=== PATIENT | male | born 1945 | race Caucasian/White ===

== ENCOUNTER 2022-01-03 17:04 | Inpatient (IN) | payer MEDICARE, SELFPAY ==
[2022-01-03] VITALS (32 sets, daily range): BP systolic 66–176; BP diastolic 41–109; PULSE 65–132; RESP 30–54; TEMP 36.6–39; O2SAT 75–100; BMI 27.3
--- NOTE | 2022-01-03 17:14 | ECG_ITS ---
[facility] Test Date: 2022-01-03 Pat Name: Abhijit Saez Department: Room: Gender: Male Bar Captain: : 1945 Requested By: Pete Flores Order Number: [id number] Daphne MD: Bonnie Ramirez M.D. Measurements Intervals [place] Rate: 116 P: CO: QRS: -20 QRSD: 104 T: 78 QT: 225 QTc: 313 Interpretive Statements SINUS RHYTHM WITH FREQUENT PAC'S AND INTERMITTENT BLOCKED PAC'S MARKED ST DEPRESSION, CONSIDER SUBENDOCARDIAL INJURY Compared to ECG 05/06/2017 09:47:22 ST (T wave) deviation now present Sinus rhythm no longer present Electronically Signed On 01-03-2022 20:19:35 CDT by Bonnie Ramirez M.D. [id number]
--- NOTE | 2022-01-03 17:17 | XRR_ITS ---
PROCEDURE INFORMATION: Exam: XR Chest Exam date and time: 01/03/2022 5:24 PM Age: 76 years old Clinical indication: Cough; Additional info: Dyspnea/cough TECHNIQUE: Imaging protocol: Radiologic exam of the chest. Views: 1 view. COMPARISON: MR thoracic spin wo con* [id number] 06/22/2016 4:23 PM FINDINGS: Lungs: The lung bases are suboptimally assessed due to technique however the upper lungs are clear of focal consolidation. Ill-defined opacity in the right base may represent developing pneumonitis. Streaky left basilar opacity is also present which may represent atelectasis-scarring. Pleural spaces: Unremarkable. No pleural effusion. No pneumothorax. Heart/Mediastinum: Cardiac silhouette appears normal in size. No obvious vascular congestion however there is slightly prominent right hilar contour which may represent prominent central vasculature versus adenopathy/mass.. Bones/joints: No acute osseous findings. Other findings: Single view was submitted. XR/XR chest 1V portable [id number] IMPRESSION: Ill-defined right basilar opacity and slightly prominent right hilar contour. Correlation with chest CT should be considered, preferably with IV contrast. Comparison prior study may also be helpful if available.
--- NOTE | 2022-01-03 17:20 | USCV_ITS ---
Abhijit Saez Age: 76 Gender: M : 1945 Exam Date: 01/03/2022 18:49 Ordering Phys: Pete Gonzalez DO Technologist: ARIC [place] [facility] [place]: new onset Afib, elevated troponin. No history of cardiac intervention per . Long-term smoker. BP: 95 / 70 HR: 111 Rhythm: Atrial fibrillation Technical Quality: Fair MEASUREMENTS (Male / Female) Normal Values 2D ECHO LV Diastolic Diameter PLAX 4.6 cm 4.2 - 5.9 / 3.9 - 5.3 cm LV Systolic Diameter PLAX 3.7 cm IVS Diastolic Thickness 1.2 cm 0.6 - 1.0 / 0.6 - 0.9 cm IVS Systolic Thickness 1.7 cm LVPW Diastolic Thickness 1.2 cm 0.6 - 1.0 / 0.6 - 0.9 cm LVPW Systolic Thickness 1.7 cm LVOT Diameter 1.8 cm LV Ejection Fraction 2D Teich 41.0 % LV Ejection Fraction MOD 2C 38.9 % LV Ejection Fraction 2C AL 39.6 % LA Diameter 3.7 cm LA Width 4.4 cm LA Height 5.8 cm RA Width 4.1 cm RA Height 4.0 cm Aorta at Sinotubular Diameter 2.9 cm IVC Diameter 2.0 cm M-MODE Aortic Annulus Diameter 3.0 cm LA Ao Ratio MM 1.0 MV E Point Septal Separation 1.3 cm DOPPLER AV Peak Velocity 301.7 cm/s LVOT Peak Velocity 63.0 cm/s AV Area Cont Eq vti 0.5 cm squared AV Area Cont Eq pk 0.5 cm squared MV Peak Velocity 123.0 cm/s MV Area PHT 5.1 cm squared Mitral E to A Ratio 199.6 MV E' Velocity 54.0 cm/s Mitral E to MV E' Ratio 13.7 Mitral E to LV E' Lateral Ratio 13.1 Mitral E to LV E' Septal Ratio 14.5 TR Peak Velocity 291.5 cm/s TR Peak Gradient 34.0 mmHg TV Peak E Velocity 47.0 cm/s Right Atrial Pressure 10.0 mmHg Pulmonary Artery Systolic Pressu 44.0 mmHg FINDINGS Left Ventricle Diffuse hypokinesia of the left ventricle with an ejection fraction of around 40%. Patient was found to be in atrial fibrillation with rapid ventricular rate, during the study Right Ventricle The right ventricle is normal in size and function. Right Atrium Mildly increased right atrial size. Left Atrium Mildly increased left atrial size. Mitral Valve Moderate-severe mitral valve regurgitation. Aortic Valve Moderate aortic valve calcification. Severe low gradient aortic valve stenosis with a peak velocity of 3.16 m/s. Peak gradient of 40 mmHg and a mean gradient of 22 mmHg. Valve area based on VTI was 0.50 cm squared. Tricuspid Valve Mild tricuspid valve regurgitation. Estimated pulmonary artery peak systolic pressure 44 mmHg Pulmonic Valve Pulmonic valve not well visualized. Pericardium Normal pericardium without effusion. Aorta Normal ascending aorta dimension. IVC Dilated IVC with decreased respiratory variation. CONCLUSIONS Diffuse hypokinesia of the left ventricle with an ejection fraction of around 40%. Mild biatrial enlargement Moderate-severe mitral valve regurgitation. Moderate aortic valve calcification. Severe low gradient aortic valve stenosis with a peak velocity of 3.16 m/s. Peak gradient of 40 mmHg and a mean gradient of 22 mmHg. Valve area based on VTI was 0.50 cm squared. Mild tricuspid valve regurgitation. Estimated pulmonary artery peak systolic pressure 44 mmHg Estimated right atrial mean pressure of 15 mmHg There is no pericardial effusion. There are no intracardiac masses. No similar previous studies are available for comparison Dr Fern Nickerson MD FACC (Electronically Signed) Final Date: 04 January 2022 07:39 S
[2022-01-03] MEDS: esmolol drip 2,500 MG/250 ML PREMIX 23.81 MG IV (17:22)
[2022-01-03] MEDS: heparin 5,000 unit/mL INJ 1 mL IV (17:23)
[2022-01-03 17:27] LABS: ABG PH Result 7.45 (7.35-7.45); Arterial Blood Gas Hematocrit 36.5 % (42-52); Base Excess ABG -7.3 mmol/L (-2.0-2.0); Blood Gas Allen Test Pos; Blood Gas Operator Identificat AMH; Blood Gas Sample Site Radial, left; Blood Gas Sample Type Arterial; HCO3 ABG 14.7 mmol/L (22-26); HGB O2 Sat 86.2 % (95-100); Ionized Calcium Level - ABG 1.1 mmol/L (1.1-1.4); Methemoglobin 0.5 % (0.4-1.5); Oxygen Device NC; Oxygen Saturation ABG 87.6; PO2 ABG 52.5 mmHg (80.0-100.0); Potassium Level - ABG 2.8 mmol/L (3.5-5.0); Total Hemoglobin 11.9 g/dL (14-18)
[2022-01-03 17:34] LABS: Basophils % 0.2 %; Eosinophils # 0.1 10^3/uL (0.0-0.8); Eosinophils % 0.3 %; Hematocrit 33.3 % (42.0-52.0); Hemoglobin 11.4 g/dL (11.7-16.6); Lymphocytes # 0.9 10^3/uL (0.8-4.8); Lymphocytes % 4.5 %; Mean Corpuscular HGB Conc 34.2 g/dL (30.0-36.0); Mean Corpuscular Hemoglobin 30.2 pg (28.0-34.0); Mean Corpuscular Volume 88.3 fl (80-94); Monocytes # 0.9 10^3/uL (0.2-0.9); Monocytes % 4.8 %; Neutrophils # 17.66 10^3/uL (1.8-7.7); Neutrophils % 89.3 %; Nucleated Red Blood Cells % 0 %; Platelet Count 227 10^3/cmm (130-400); Red Blood Count 3.77 10^6/uL (4.1-5.3); White Blood Count 19.8 10^3/uL (4.0-10.0)
--- NOTE | 2022-01-03 17:34 | ED_ITS ---
HPI - Chest Pain General: Chief Complaint: Chest Pain Stated Complaint: afib / rvr Time Seen by Provider: 01/03/22 17:07 Source: patient Mode of arrival: EMS History of Present Illness: 76-year-old male transferred here from [facility] in [place]. Patient presents in A. fib with RVR he sounds like he may have been his for most of the last week. He is extremely short of breath. He denies any chest pain. Initially an EKG was faxed to us that were concerned about a STEMI I reviewed and discussed with Dr. Milton and neither 1 of us felt there is a STEMI present I did feel his A. fib with RVR discussed with the ER doctor there about starting him on something for rate control. Additionally he was hypoxic. He states been increasingly short of breath for the last week. On arrival here he is received 2.5 metoprolol and EMS had given him 20 of IV Cardizem his rate had been in the 140s. He is requiring 15 L by mask. He continues to deny any chest pain. On EKG he is A. fib with RVR with some ST depression that looks like demand ischemia. Laboratory values sent from the sending hospital included elevated D-dimer at 6.6 elevated creatinine at 3.07 and initial troponin greater than 1000. MD complaint: chest pain Onset (ago): day(s) Timing of current episode: episodic Prior episodes: Yes Onset: during rest Pain radiation: none Relieving factors: nothing Exacerbating factors: nothing Associated symptoms: Reports dyspnea; Deny abdominal pain, diaphoresis, fever(s), leg edema, nausea, palpitations, sense of impending doom, syncope or vomiting Treatment prior to arrival: other (Metoprolol) Review of Systems Const: Denies: fever(s), chills, fatigue, malaise or diaphoresis ENMT: Denies: throat pain, ear or mastoid pain, nasal discharge or nasal congestion Card: Reports: irregular heart rhythm and edema; Denies: chest pain, palpitations or syncope Resp: Reports: dyspnea GI: Denies: abdominal pain, nausea or vomiting : Denies: flank pain, dysuria, urinary frequency or urinary urgency Skin/Breast: Denies: rash or pruritus PFS ED PFSH: Medical History Dyslipidemia Hypertension Surgical History H/O lumbosacral spine surgery Family History Other CAD (coronary artery disease) Social History Smoking and tobacco status: former smoker Quit status (tobacco): has quit using tobacco Former quit date comment: 2 years ago Alcohol intake: never Household members: spouse Physical Exam Const: GENERAL APPEARANCE: cooperative and comfortable ORIENTATION/CONSCIOUSNESS: Yes awake, Yes oriented to person, Yes oriented to place and Yes oriented to time HENMT: COMMON NORMALS: normocephalic, atraumatic and hearing grossly normal bilaterally HEAD & SCALP: normocephalic and atraumatic Resp: COMMON NORMALS: normal respiratory effort, No retractions, No use of accessory muscles and clear to auscultation bilaterally AUSCULTATION: clear to auscultation bilaterally Cardio: COMMON NORMALS: regular rate, regular rhythm and No murmurs present (Cardio) RATE: regular rate RHYTHM: regular rhythm GI: COMMON NORMALS: Soft to palpation and No hepatosplenomegaly present AUSCULTATION: Yes normoactive bowel sounds PALPATION: Yes Soft to palpation, No Tenderness to palpation present (GI), No Guarding due to palpation present (GI) and Yes No hepatosplenomegaly present Extremity: COMMON NORMALS: normal to inspection, capillary refill normal, no clubbing, cyanosis or edema, no calf tenderness and no pedal edema Neuro: SENSORIUM/ORIENTATION: Yes oriented to person, Yes oriented to place and Yes oriented to time Skin: COMMON NORMALS: no rashes or lesions noted GENERAL SKIN EXAM: no rashes or lesions noted Course Vital Signs: Vital signs: Vital Signs Temperature 98.6 F 01/05/22 17:08 Pulse Rate 76 01/05/22 17:08 Respiratory Rate 18 01/05/22 17:08 Blood Pressure 124/71 01/05/22 17:08 Pulse Oximetry 100 01/05/22 14:30 Oxygen Delivery Me thod 01/05/22 12:00 Oxygen Flow Rate 15 01/03/22 17:13 Fraction of Inspir ed Oxygen 100 01/05/22 13:30 MDM - Chest Pain Medical Decision Making Multiple issues ongoing at this time. When he arrived here he was in A. fib with RVR. He did receive a dose of Cardizem. We started him on esmolol initially but his blood pressure drop was changed to amiodarone. Patient has significant ST depression but he is not having any chest pain. He also looks to have pneumonia suspicious for COVID. He did respond well to BiPAP. He has acute kidney injury as well. I did heparinize him because of the elevated D- dimer and troponin suspicious he may have a PE but at this time I do not think his kidneys will tolerate a CTA of the chest. Discussed with hospitalist also consulted cardiology. Prognosis poor. Discussed with the family at the bedside. Medical Records I reviewed the patient's medical records. Lab Data I reviewed the patient's lab results. : 01/05/22 07:55 01/05/22 07:55 Radiology Impressions Renal Ultrasound 01/04/22 23:19 IMPRESSION: 1. Zepeda catheter. 2. Mild RIGHT renal cortical atrophy. 3. Normal LEFT kidney. 4. No hydronephrosis in either kidney. Chest X-Ray 01/05/22 10:27 Impression: 1. No change in right lung opacity. 2. No change in position of multiple tubes. 3. Cardiomegaly. KUB X-Ray 01/05/22 10:27 Impression: 1. Dilatation of small bowel loops in central abdomen which may represent a severe ileus or early small bowel obstruction. 2. Multiple wires and leads overlie the abdomen. Laboratory Results WBC 19.8 10^3/uL (4.0-10.0) H 01/03/22 17:20 RBC 3.77 10^6/uL (4.1-5.3) L 01/03/22 17:20 Hgb 11.4 g/dL (11.7-16.6) L 01/03/22 17:20 Hct 33.3 % (42.0-52.0) L 01/03/22 17:20 MCV 88.3 fl (80-94) 01/03/22 17:20 MCH 30.2 pg (28.0-34.0) 01/03/22 17:20 MCHC 34.2 g/dL (30.0-36.0) 01/03/22 17:20 RDW 14.0 % (12.1-15.1) 01/03/22 17:20 Plt Count 227 10^3/cmm (130-400) 01/03/22 17:20 MPV 12.0 fL (7.4-10.4) H 01/03/22 17:20 Neut % (Auto) 89.3 % 01/03/22 17:20 Lymph % (Auto) 4.5 % 01/03/22 17:20 [place] % (Auto) 4.8 % 01/03/22 17:20 Eos % (Auto) 0.3 % 01/03/22 17:20 Baso % (Auto) 0.2 % 01/03/22 17:20 Neut # (Auto) 17.66 10^3/uL (1.8-7.7) H 01/03/22 17:20 Lymph # (Auto) 0.9 10^3/uL (0.8-4.8) 01/03/22 17:20 [place] # (Auto) 0.9 10^3/uL (0.2-0.9) 01/03/22 17:20 Eos # (Auto) 0.1 10^3/uL (0.0-0.8) 01/03/22 17:20 Baso # (Auto) 0.0 10^3/uL (0.0-0.1) 01/03/22 17:20 Nucleated RBC % (auto) 0 % 01/03/22 17:20 Nucleated RBCs # 0.0 /100WBC 01/03/22 17:20 Specimen Type Arterial 01/03/22 17:15 Sample Site Radial, left 01/03/22 17:15 ABG pH 7.45 (7.35-7.45) 01/03/22 17:15 ABG pCO2 21.0 mmHg (35-45) L 01/03/22 17:15 ABG pO2 52.5 mmHg (80.0-100.0) L 01/03/22 17:15 ABG HCO3 14.7 mmol/L (22-26) L 01/03/22 17:15 ABG O2 Saturation 87.6 01/03/22 17:15 ABG Base Excess -7.3 mmol/L (-2.0-2.0) L 01/03/22 17:15 Miles Test Pos 01/03/22 17:15 A-a O2 Gradient 9.0 mmHg (5-10) 01/03/22 17:15 Hematocrit 36.5 % (42-52) L 01/03/22 17:15 Hgb O2 Saturation 86.2 % (95-100) L 01/03/22 17:15 Carboxyhemoglobin 1.0 %THgb (0.4-20.1) 01/03/22 17:15 Methemoglobin 0.5 % (0.4-1.5) 01/03/22 17:15 Total Hemoglobin 11.9 g/dL (14-18) L 01/03/22 17:15 Sodium 134.0 mmol/L (131-143) 01/03/22 17:15 Potassium 2.8 mmol/L (3.5-5.0) L 01/03/22 17:15 Glucose 292.0 mg/dL (70-115) H 01/03/22 17:15 Ionized Calcium 1.1 mmol/L (1.1-1.4) 01/03/22 17:15 O2 Delivery Device Nc 01/03/22 17:15 O2 Liters/Min 15.0 % 01/03/22 17:15 Bench Scientist ID Amh 01/03/22 17:15 Sodium 133 mmol/L (136-145) L 01/03/22 19:30 Potassium 2.8 mmol/L (3.5-5.1) L* 01/03/22 19:30 Chloride 94 mmol/L (98-107) L 01/03/22 19:30 Carbon Dioxide 15 mmol/L (22-29) L 01/03/22 19:30 Anion Gap 26.8 (5-19) H 01/03/22 19:30 BUN 57 mg/dL (8-23) H 01/03/22 19:30 Creatinine 3.0 mg/dL (0.7-1.2) H 01/03/22 19:30 GFR Calculation Not Reportable 01/03/22 19:30 Glucose 267 mg/dL (65-115) H 01/03/22 19:30 Estimat Average Glucose 140 01/03/22 17:20 Hemoglobin A1c 6.5 % (4.0-6.0) H 01/03/22 17:20 Calculated Osmolality 301 mOsm/kg (285-295) H 01/03/22 19:30 Uric Acid 14.5 mg/dL (3.4-7.0) H 01/03/22 01:28 Calcium 8.8 mg/dL (8.5-10.5) 01/03/22 19:30 Phosphorus 7.0 mg/dL (2.5-4.5) H 01/03/22 01:28 Magnesium 2.3 mg/dL (1.7-2.3) 01/03/22 20:28 Total Bilirubin 0.6 mg/dL (0.15-1.2) 01/03/22 19:30 AST 361 U/L (0-40) H 01/03/22 19:30 ALT 125 U/L (0-41) H 01/03/22 19:30 Alkaline Phosphatase 109 U/L (40-130) 01/03/22 19:30 Creatine Kinase 4622 U/L (39-308) H* 01/03/22 17:20 CK-MB (CK-2) 42.7 ng/mL (0-10.4) H 01/03/22 17:20 CK-MB (CK-2) Rel Index 0.9 % (0.0-5.3) 01/03/22 17:20 Troponin T Baseline 1533 ng/L (0-15) H* 01/03/22 17:20 Troponin T 120 Minute 3806 ng/L (0-15) H 01/03/22 20:28 Delta Troponin T 2273 ABS# (0-10) H* 01/03/22 20:28 Troponin T Hi Sens 6Hr 7383 ng/L (0-15) H 01/03/22 01:28 Troponin T Hi Sens 6Hr Delta 5850 ng/L (0-12) H* 01/03/22 01:28 Total Protein 7.0 g/dL (6.6-8.7) 01/03/22 19:30 Albumin 3.4 g/dL (3.5-5.2) L 01/03/22 19:30 Globulin 3.6 g/dL (1.3-4.6) 01/03/22 19:30 Procalcitonin 31.36 ng/mL (0-0.5) H 01/03/22 17:20 TSH 0.19 uIU/mL (0.27-4.20) L 01/03/22 19:30 Random Cortisol 116.30 ug/dL (2.47-19.5) H 01/03/22 20:28 TORREY Screen Negative (NEGATIVE) 01/03/22 01:28 Anti-ds DNA IgG Ab <1 IU/mL 01/03/22 01:28 Complement C3 108 mg/dL (90-180) 01/03/22 01:28 Complement C4 25 mg/dL (10-40) 01/03/22 01:28 Hep Bs Antigen Non-reactive (Nonreactive) 01/03/22 01:28 Hep Bs Antibody < 3.5 (11.5-1000) L 01/03/22 01:28 Hep B Core Total Ab Non-reactive (Nonreactive) 01/03/22 01:28 Hepatitis C Antibody Cancelled 01/03/22 01:28 Hepatitis C Antibody Non-reactive (Nonreactive) 01/03/22 01:28 Discharge Plan Discharge Patient Disposition: Admitted As Inpatient Admit Provider: Herbert Monique Clinical Impression: Septic shock, MARK (acute kidney injury), ATN (acute tubular necrosis), Severe aortic stenosis, Sepsis, NSTEMI (non-ST elevated myocardial infarction), Afib, D-dimer, elevated, CAP (community acquired pneumonia), Acute respiratory failure with hypoxia Condition: Stable Coding Level of Care Code ED Crimp Setter for Curt Zheng
--- NOTE | 2022-01-03 17:45 | PC.NURSE ---
Updated family on what we have done and what the plan at this moment.
--- NOTE | 2022-01-03 17:53 | PM.CONSULT ---
Providers/Reason For Consult Consulting Physician/Specialty*: Wayne Newman MD/ Interventional Cardiology Reason for Consult*: Possible STEMI Requesting Physician: Dr Gonzalez Attending Physician: Dr Monique Primary Care Provider: Maksim Farnsworth History of Present Illness History of Present Illness Abhijit Saez is a 76 year old male with past medical history of hypertension who has been transferred from [place] emergency room secondary to concern for acute AR. Patient has not been feeling well for the last 1 week. Has had fevers. Worsening shortness of breath as well. Also feels weak. Today the symptoms became worse. EKG reviewed. Patient in A. fib with RVR. Has significant ST depressions however not consistent with ST elevation AR. His initial troponin is over 1000. Denies any chest pain. On labs from outside hospital emergency room, he has renal failure with creatinine of 3. WBC count is elevated as well. D-dimer was high. Also right lower lobe consolidation noted on chest x-ray. Review of Systems Const: Reports: chills and body aches Eyes: Denies: change in vision ENMT: Denies: throat pain Card: Reports: irregular heart rhythm, dyspnea on exertion and orthopnea; Denies: chest pain Resp: Reports: dyspnea GI: Denies: abdominal pain : Denies: flank pain Musc: Denies: neck pain Skin/Breast: Denies: rash Neuro: Denies: headache(s) Psych: Reports: anxiety Endo: Denies: polyuria Nathanael/Lymph: Denies: easy bruising All/Imm: Denies: urticaria Medications/Allergies Home Medications Medication Instructions Recorded Confirmed Last Taken Type atenolol 100 mg-chlorthalidone 25 1 tab PO DAILY 01/04/22 01/04/22 Unknown History mg tablet fenofibrate 160 mg tablet 10 mg PO DAILY 01/04/22 01/04/22 Unknown History hydroxyzine HCl 10 mg tablet 10 mg PO TID PRN Anxiety 01/04/22 01/04/22 Unknown History Allergies Allergy/AdvReac Type Severity Reaction Status Date / Time No Known Allergies Allergy Verified 01/04/22 08:14 Current Medications Generic Name Dose Route Start Last Admin Trade Name Freq PRN Reason Stop Dose Admin Heparin Sodium (Porcine) 0 unit 01/03/22 17:17 01/03/22 17:23 Heparin 5,000 Unit/Ml Inj 1 Ml IV 9.9 unit PRN PRN Administration Heparin weight-base protocol Protocol Esmolol HCl 2,500 mg in 250 mls @ 0 mls/hr 01/03/22 17:15 01/03/22 17:22 Brevibloc Drip IV 50 mcg/kg/min .Q0M LLOYD 23.81 mls/hr Administration Protocol Per Protocol PFSH Acute PFSH: Medical History Dyslipidemia Hypertension Surgical History H/O lumbosacral spine surgery Family History Other CAD (coronary artery disease) Social History Smoking and tobacco status: former smoker Quit status (tobacco): has quit using tobacco Former quit date comment: 2 years ago Alcohol intake: never Substance/Drug Use: never Household members: spouse Vitals/I&O/Wt Last Vital Signs Temp 97.8 F 01/03/22 17:13 Pulse 115 H 01/03/22 17:30 Resp 46 H 01/03/22 17:30 BP 98/73 01/03/22 17:30 Pulse Ox 90 01/03/22 17:13 O2 Del Method 01/03/22 17:13 O2 Flow Rate 15 01/03/22 17:13 Weight last 48 hrs Weight 175 lb Weight 175 lb Physical Exam Narrative: GENERAL: Patient is alert, in respiratory distress HEENT: No cyanosis. No icterus. No pallor. [] HEART: Irregularly irregular, tachycardic. Grade 3/6 systolic murmur LUNGS: Diminished breath sounds bilaterally CENTRAL NERVOUS SYSTEM: Grossly nonfocal. [] EXTREMITIES: Lower extremities with 1+ edema bilaterally. Pulses palpable in the lower extremities, both dorsalis pedis and posterior tibial. [] Data : 01/04/22 06:28 01/04/22 06:28 A&P Assessment and plan (1) NSTEMI (non-ST elevated myocardial infarction): Status: Acute (2) Sepsis: Status: Acute (3) Afib: Status: Acute (4) D-dimer, elevated: Status: Acute (5) CAP (community acquired pneumonia): Status: Acute (6) MARK (acute kidney injury): Status: Acute Plan Patient has significant troponin elevation. Most likely has underlying CAD and with sepsis/afib has significant demand ischemia vs NSTEMI as underlying cause. Will need more work-up prior to invasive procedures. We will obtain echocardiogram. He may need to have have intubation. ABGs obtained Keep trending troponins Sepsis management per primary team. Continue heparin drip. Thank you for involving us with care of this patient. We will continue to follow. Please call with questions. Consult Attestations Medical Necessity Statement: Care expected to cross 2 midnights. Coding Level of Care Code Acute Forest Ranger for g Fwd Diagnoses NSTEMI (non-ST elevated myocardial infarction) I21.4 Sepsis A41.9 Afib I48.91 D-dimer, elevated R79.89 CAP (community acquired pneumonia) J18.9 MARK (acute kidney injury) N17.9
[2022-01-03] MEDS: sodium chloride 0.9% 1,000 ML 999 ML IV (17:58)
[2022-01-03] MEDS: cefepime 2,000 MG in sodium chloride 0.9% (plus) 50 ML 100 MG IV (17:59)
[2022-01-03 18:33] LABS: Troponin(5th) Baseline 1533 ng/L (0-15)
--- NOTE | 2022-01-03 18:35 | PM.HP ---
Providers/Chief Complaint Primary Care Provider: Maksim Farnsworth Chief Complaint: afib / rvr History of Present Illness Abhijit Saez is a 76 year old male presented from the outside facility with chief complaint of worsening shortness of breath. Outside work-up showed D-dimer 6, BNP 3300, hypoxia, for concern of STEMI he was transferred to our facility for further evaluation, his EKG was reviewed by the ER physician and the service rig operator, EKG did not show STEMI related changes, however troponin is above 1000, he has already been started on heparin drip in route to the hospital, he was diagnosed with A. fib RVR Cardizem 20 mg IV push was given by EMS as well, he was evaluated by the service rig operator right away in the ER. He has pretty dense consolidation on his x-ray I have requested CT chest to rule out malignancy, our suspicion is very high for pulmonary embolism continue heparin drip, gentle fluid hydration was started by the ER physician, he has received IV antibiotics, cultures have been obtained He meets sepsis criteria his BNP is 3300, clinically does not look fluid overloaded, he has received 1 L in the ER I will go ahead give him another 500 mL judicious use of fluids for my concern of reduced action fraction heart failure exacerbation Family is at the bedside, daughter works at a halfway, she is stating that for last 7 days he has been experiencing generalized fatigue and shortness of breath he has never experienced any fever, chest pain, diarrhea or vomiting. He is vaccinated for COVID-19, no one else is sick at home He also suffered from a fall and hit his right knee on the ground, as per the daughter his personality also change lately he was experiencing hallucination. Stat echo has been requested, I will go ahead give him renally dose vancomycin along with cefepime, and clindamycin His EKG showing significant ST depression in anterolateral leads, A. fib RVR Type II AV block? Review of Systems Const: Reports: chills and body aches Eyes: Denies: change in vision ENMT: Denies: throat pain Card: Reports: irregular heart rhythm, dyspnea on exertion and orthopnea; Denies: chest pain Resp: Reports: dyspnea GI: Denies: abdominal pain : Denies: flank pain Musc: Denies: neck pain Skin/Breast: Denies: rash Neuro: Denies: headache(s) Psych: Reports: anxiety Endo: Denies: polyuria Nathanael/Lymph: Denies: easy bruising All/Imm: Denies: urticaria Medications/Allergies Home Medications Medication Instructions Recorded Confirmed Last Taken Type atenolol 100 mg-chlorthalidone 25 1 tab PO DAILY 01/04/22 01/04/22 Unknown History mg tablet fenofibrate 160 mg tablet 10 mg PO DAILY 01/04/22 01/04/22 Unknown History hydroxyzine HCl 10 mg tablet 10 mg PO TID PRN Anxiety 01/04/22 01/04/22 Unknown History Allergies Allergy/AdvReac Type Severity Reaction Status Date / Time No Known Allergies Allergy Verified 01/04/22 08:14 PFSH Acute PFSH: Medical History Dyslipidemia Hypertension Surgical History H/O lumbosacral spine surgery Family History Other CAD (coronary artery disease) Social History Smoking and tobacco status: former smoker Quit status (tobacco): has quit using tobacco Former quit date comment: 2 years ago Alcohol intake: never Substance/Drug Use: never Household members: spouse Vitals/I&O/Wt Last Vital Signs Temp 97.8 F 01/03/22 17:13 Pulse 122 H 01/03/22 18:06 Resp 46 H 01/03/22 17:45 BP 95/70 01/03/22 17:45 Pulse Ox 99 01/03/22 18:06 O2 Del Method 01/03/22 17:13 O2 Flow Rate 15 01/03/22 17:13 FiO2 75 01/03/22 18:06 Weight last 48 hrs Weight 79.379 kg Weight 79.379 kg Physical Exam Narrative: Patient is laying supine Getting echo He is awake and alert Tachypneic respirate in 40s Currently on BiPAP settings 16/8 FiO2 75% Saturating above 90% S1, S2 with systolic murmur Clinically does not look fluid overloaded Right ankle bruise noted No edema of lower legs Nonfocal neuro exam Data : 01/04/22 06:28 01/04/22 06:28 Micro: Microbiology 01/03/22 17:52 Blood Culture - Preliminary Blood SPECIMEN COLLECTED A&P Assessment and plan (1) Sepsis: Status: Acute (2) NSTEMI (non-ST elevated myocardial infarction): Status: Acute (3) Afib: Status: Acute (4) D-dimer, elevated: Status: Acute (5) CAP (community acquired pneumonia): Status: Acute (6) Hypoxia: Status: Acute (7) MARK (acute kidney injury): Status: Acute (8) Rhabdomyolysis: Status: Acute Plan Septsis Criteria met with tachypnea tachycardia leukocytosis Judicious use of fluids because of high BNP and slightly reduced EF on echo as per my interpretation official read of echo is pending He has received cefepime cultures have been taken I will give him vancomycin, cefepime and clindamycin Acute hypoxia Currently on BiPAP High risk for intubation because of tachypnea Try Precedex with BiPAP in the ICU Community-acquired pneumonia Concern for right hilar mass requested CT chest without contrast on stat basis Check urine antigens I will also request COVID PCR COVID antigen has been negative in the outside facility NSTEMI Significant ST depression Troponin by 1000 It could be stress related cardiomyopathy Patient is not complaining of any chest pain We will follow-up with echo I will give him aspirin, Plavix, atorvastatin and heparin drip Rhabdomyolysis Patient fell at home CPK above 4000 Continue IV fluid hydration New onset A. fib RVR I will start amnio drip Blood pressure dropped with esmolol drip TSH 0.21 Check potassium and magnesium Rule out PE Continue heparin drip MARK Metabolic acidosis Creatinine around 3 Clear urine in Zepeda catheter No previous diagnosis of kidney injury Full code I will keep him on clear liquid diet for now High risk for intubation Admit to ICU Attestations Medical Necessity Statement*: ICU more than 2 midnights anticipated for management of sepsis Time Spent in Patient Care: 50 Coding Level of Care Code Acute Guard Captain for [facility] Fwd Diagnoses Sepsis A41.9 NSTEMI (non-ST elevated myocardial infarction) I21.4 Afib I48.91 D-dimer, elevated R79.89 CAP (community acquired pneumonia) J18.9 Hypoxia R09.02 MARK (acute kidney injury) N17.9 Rhabdomyolysis M62.82
--- NOTE | 2022-01-03 18:41 | USCV_ITS ---
Abhijit Saez Age: 76 Gender: M : 1945 Exam Date: 01/03/2022 22:03 Ordering Phys: Herbert Monique MD Technologist: ARIC Exam Location: [facility] [place] Indication: hypoxia, leg pain. No history of DVT per patient. HISTORY: hypoxia, leg pain. No history of DVT per patient. PROCEDURES: Venous duplex imaging was performed in bilateral lower extremities. The venous duplex Doppler examination of both lower extremities was performed in the standard fashion. The following venous structures were evaluated: common femoral vein, profunda vein, proximal portion of the greater saphenous vein, superficial femoral vein, and the popliteal vein. FINDINGS: Normal 2-D Doppler and augmentation and compressibility throughout the lower extremity venous structures. Additional imaging through the proximal calf veins also reveals no thrombus. Limited evaluation of the greater saphenous vein is patent with no thrombus. CONCLUSIONS No DVT bilateral lower extremities. Dr. Esperanza Olson DO (Electronically Signed) Final Date: 04 January 2022 08:56 S
[2022-01-03 19:15] LABS: Creatine Phosphokinase 4622 U/L (39-308)
--- NOTE | 2022-01-03 19:18 | ECG_ITS ---
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 Measurements Intervals [place] Rate: 120 P: [place]: QRS: -27 QRSD: 102 T: 56 QT: 320 QTc: 452 Interpretive Statements SINUS RHYTHM WITH FREQUENT PAC'S AND INTERMITTENT BLOCKED PAC'S BORDERLINE LEFT AXIS DEVIATION [QRS AXIS < -20] MODERATE ST DEPRESSION [0.05+ mV ST DEPRESSION] Compared to ECG 01/03/2022 18:23:53 No significant changes Electronically Signed On 01-03-2022 20:33:43 CDT by Bonnie Ramirez M.D. [id number]
[2022-01-03 19:24] LABS: Procalcitonin 31.36 ng/mL (0-0.5)
--- NOTE | 2022-01-03 20:40 | PC.NURSE ---
Pt. arrived to ICU 3 from ER. Pt. is on BIPAP per RT and breathing 40-50 times a minute and very anxious and getting increasingly confused. Called Dr. Zabala and updated.
[2022-01-03 20:50] LABS: CKMB 42.7 ng/mL (0-10.4); CKMB Relative Index 0.9 % (0.0-5.3)
[2022-01-03 21:13] LABS: Alanine Aminotransferase 125 U/L (0-41); Albumin Level 3.4 g/dL (3.5-5.2); Alkaline Phosphatase 109 U/L (40-130); Blood Urea Nitrogen 57 mg/dL (8-23); Calcium 8.8 mg/dL (8.5-10.5); Carbon Dioxide 15 mmol/L (22-29); Chloride 94 mmol/L (98-107); Globulin 3.6 g/dL (1.3-4.6); Glucose 267 mg/dL (65-115); Osmolality Calculated 301 mOsm/kg (285-295); Sodium 133 mmol/L (136-145); Total Bilirubin 0.6 mg/dL (0.15-1.2)
[2022-01-03 21:28] LABS: Anion Gap 26.8 (5-19); Potassium 2.8 mmol/L (3.5-5.1)
[2022-01-03 21:29] LABS: Troponin 5 2HR 3806 ng/L (0-15); Troponin 5 2HR Delta 2273 ABS# (0-10)
[2022-01-03 21:29] LABS: Aspartate Amino Transferase 361 U/L (0-40)
--- NOTE | 2022-01-03 21:32 | XRR_ITS ---
PROCEDURE INFORMATION: Exam: XR Chest Exam date and time: 01/03/2022 9:42 PM Age: 76 years old Clinical indication: Shortness of breath; Additional info: Tachypnea/shortness of breath TECHNIQUE: Imaging protocol: Radiologic exam of the chest. Views: 1 view. COMPARISON: CR (CHEST, ) 01/03/2022 5:24 PM FINDINGS: Lungs: Slight interval worsening of right basilar opacity suspicious for developing pneumonitis and possible small right pleural effusion. Left lung remains grossly clear. Pleural spaces: See Lungs finding. No pneumothorax. Heart/Mediastinum: Slightly prominent right hilar contour is again noted and postobstructive process should be excluded. CT correlation may be helpful. Bones/joints: No acute findings. XR/XR chest 1V [id number] IMPRESSION: Right hilar contour prominence and slight worsening of right basilar opacity as described.
[2022-01-03] MEDS: dexmedeTOMIDine 0.9 % NaCL 400 MCG/100 ML PREMIX IV (21:34)
--- NOTE | 2022-01-03 21:36 | PC.PHAR ---
Pharmacokinetic dosing service Date: 01/03/22 Time: 2135 Objective: Patient: Abhijit Saez Floor: ICU-3 Age: 76 yo Serum creatinine: 3 mg/dL Height: 67.0 Inches Weight (kg): 79.379 Diagnosis: Relevant medical/social history: Cultures and sensitivities: Other labs: Assessment: IBW (kg): 66.10 Dosing wt(kg): 79.379 Estimated Creatinine clearance (ml/min): 19.6 CRCL method: Cockcroft and Gault using ibw(default). Drug selected: Vancomycin Loading dose (mg): 0 Vd (liters): 71.4 (factor used: 0.9 L/kg) Kip (hr-1): 0.021 Half life (hrs): 33.01 Recommended dose: 1250 mg Interval: 36 hrs Infusion time (hrs): 1.5 Predicted peak (mcg/mL): 32.5 Predicted trough (mcg/mL): 15.75 Total body weight is being used for vancomycin dosing. Renal function is stable [ ] /unstable [ ] Recommendations: Give Vancomycin 1250 mg q 36 hrs with an expected Cpeak of 32.5 mcg/ml and an expected Ctrough of 15.75 mcg/ml Renal dosing of other antibiotics (review renal dosing of other medications and list guidelines here): Thank you for the consult, will continue to follow. Signature: Christi Miguel [facility]
[2022-01-03 21:50] LABS: Magnesium 2.3 mg/dL (1.7-2.3)
[2022-01-03] MEDS: lidocaine 1% 5 ML in potassium chloride premix 100 ML 25 ML IV (21:53)
[2022-01-03] MEDS: bumetanide 0.25 mg/mL SDV 4 mL 1 MG IVP (21:53)
--- NOTE | 2022-01-03 22:00 | PC.NURSE ---
Called Dr. Zabala and informed of worsening respiratory status along with overall health status. Dr. Zabala to come to bedside and see patient.
[2022-01-03 22:01] LABS: Thyroid Stimulating Hormone 0.19 uIU/mL (0.27-4.20)
[2022-01-03] MEDS: acetaminophen 500 mg Tablet PO (22:55)
[2022-01-03] MEDS: clopidogrel 300 mg Tablet PO (22:56)
--- NOTE | 2022-01-03 23:02 | P.CONIM_ITS ---
Providers/Reason For Consult Consulting Physician/Specialty*: christi barron md / telenephrology Reason for Consult*: MARK, electrolyte abnormalities Requesting Physician: Dr Ford Monique Attending Physician: Herbert Monique MD Primary Care Provider: Maksim Farnsworth History of Present Illness History of Present Illness Abhijit Saez is a 76 year old male transferred to [facility] [place] for severe SOB, NSTEMI, MARK, a fib, hypotension and Q of PNA. The pt for last 7 days has been complaining of generalized fatigue, shortness of breath, and AMS. no known fevers or CP. he is very weak. has been able to sleep and lay flat. Review of Systems Narrative: weak, sob, lethargic, no Medications/Allergies Allergies Allergy/AdvReac Type Severity Reaction Status Date / Time No Known Allergies Allergy Verified 01/03/22 17:45 Current Medications Generic Name Dose Route Start Last Admin Trade Name Freq PRN Reason Stop Dose Admin Amiodarone HCl 900 mg/ 518 mls @ 0 mls/hr 01/03/22 18:45 01/03/22 19:33 Dextrose/ IV Miscellaneous IV 0.48 mg/min Supplies .Q0M LLOYD 16.7 mls/hr Administration Protocol Per Protocol dexmedeTOMIDine 0.9 % NaCL 400 mcg in 100 mls @ 0 mls/hr 01/03/22 21:30 01/03/22 21:34 Precedex IV 0.1 mcg/kg/hr .Q0M LLOYD 1.98 mls/hr Administration Protocol Per Protocol Lidocaine HCl 5 ml/ Potassium 105 mls @ 25 mls/hr 01/03/22 21:45 01/03/22 21:53 Chloride IV 01/04/22 05:44 25 mls/hr Q4H LLOYD Administration PFSH Acute PFSH: Medical History (Updated 01/03/22 @ 19:21 by Herbert Monique MD) Dyslipidemia Hypertension Surgical History (Updated 01/03/22 @ 19:21 by Herbert Monique MD) H/O lumbosacral spine surgery Family History (Updated 01/03/22 @ 19:23 by Herbert Monique MD) Other CAD (coronary artery disease) Social History (Updated 01/03/22 @ 19:24 by Herbert Monique MD) Smoking and tobacco status: former smoker Quit status (tobacco): has quit using tobacco Former quit date comment: 2 years ago Alcohol intake: never Substance/Drug Use: never Household members: spouse Vitals/I&O/Wt Last Vital Signs Temp 97.8 F 01/03/22 17:13 Pulse 103 H 01/03/22 21:14 Resp 48 H 01/03/22 19:49 BP 107/86 01/03/22 19:49 Pulse Ox 97 01/03/22 21:14 O2 Del Method 01/03/22 19:49 O2 Flow Rate 15 01/03/22 17:13 FiO2 80 01/03/22 21:14 01/03/22 01/03/22 01/04/22 14:59 22:59 06:59 Intake Total 1102.382 / 1102.382 Balance 1102.382 / 1102.382 Weight last 48 hrs Weight 79.379 kg Weight 79.379 kg Physical Exam Narrative: uncomfortable, sob on bipap, on low dose pressors and amio vs noted heent- nc/at, eomi, anicteric neck supple lung dull bases, no crackles or wheezes heart tachy, irreg abd soft, nt, + bs ext no edema neuro- a,a, o x 2 Urinary Catheter Management: Zepeda: Cath Placed During This Visit: yes Reason for Continuing Indwelling Catheter: Accurate Measurement of Urinary Output in Critically Ill Patients Urinary Catheter Date of Insertion: 01/03/22 Urinary Catheter Time of Insertion: 18:44 Data : 01/03/22 17:20 01/03/22 19:30 Micro: Microbiology 01/03/22 20:28 Blood Culture - Preliminary Blood SPECIMEN COLLECTED 01/03/22 17:52 Blood Culture - Preliminary Blood SPECIMEN COLLECTED A&P Assessment and plan (1) MARK (acute kidney injury): 76 yr old man h/o htn and hyperlipidemia. he is here w/ 1 week of weakness and sob 1. NSTEMI- per cardiology- trop rising. may proceed with cardiac cath- if cardiology feels beneficial. pt understands high risk of MARK and that he may need dialysis post cath. -please get an echo to assess for tamponade 2. acid / base- resp alkalosis w/ metabolic compensation and likely a met acidosis- evaluate for PE- on heparin/ lovenox -check lactate check salicylate levels -may need intubation for tachypnea -as sob- use lasix as needed 3. MARK- get old labs. -check renal us -check ua -check serologies, eval for a renal- pulm syndrome - may need dialysis soon -concern for CRS -monitor uop and chemistries 4. hyponatremia- check ur lytes and osm -tsh 0.19 -check am cortisol levels 5. hypokalemia- replete and monitor 6. leukocytosis- infection eval per medicine 7. elevated glucose- check hgb a1c 8.inc ck- can be rhabdo or cardiac- monitor 9 inc lft's- concern for cardiac cause or shocked liver pt is critically ill w3/ above issues- multiple organs involved. prognosis is guarded seen and examined w/ RN- telehealth visit time spent seeing pt and chart review, coordinating care > 55 min Status: Acute Plan see above Consult Attestations Medical Necessity Statement: mark, shock, NSTEMI Time Spent in Patient Care: Greater than 35 minutes (>than 50% of time spe nt in counselling and/or direct pt care on unit) . 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
[2022-01-03] MEDS: vancomycin 1,250 MG/250 ML PIGGYBACK 250 MG IV (23:06)
[2022-01-03] MEDS: clindamycin 300 MG/50 ML PREMIX 100 MG IV (23:06)
[2022-01-03] MEDS: sodium bicarbonate 8.4% 1 mEq/mL 50mL Syr 50 MEQ IVP (23:06)
[2022-01-03] MEDS: enoxaparin 80 mg/0.8 mL Syringe SUBCUT (23:07)
--- NOTE | 2022-01-03 23:18 | ECG_ITS ---
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 Measurements Intervals [place] Rate: 108 P: [place]: QRS: 1 QRSD: 92 T: 60 QT: 350 QTc: 469 Interpretive Statements SINUS RHYTHM WITH FREQUENT PAC'S AND INTERMITTENT BLOCKED PAC'S ST DEPRESSION, CONSIDER SUBENDOCARDIAL INJURY [0.1+ mV ST DEPRESSION] Compared to ECG 01/03/2022 17:14:04 No significant changes Electronically Signed On 01-03-2022 20:34:47 CDT by Bonnie Ramirez M.D. [id number]
--- NOTE | 2022-01-03 23:55 | PC.NURSE ---
Pt. deteriorating quicky with blood pressure and in oxygenation status. Dr. Zabala at bedside and to intubate patient.
[2022-01-04] VITALS (98 sets, daily range): BP systolic 93–178; BP diastolic 51–137; PULSE 68–107; RESP 16–47; TEMP 36.7–37.3; O2SAT 89–100; BMI 28.4
[2022-01-04] MEDS: succinylcholine 20 mg/mL SDV 10mL 100 MG IVP (00:24)
--- NOTE | 2022-01-04 00:25 | PC.NURSE ---
Pt. is intubated and placed on ventilator per Dr. Zabala and RT. Pt. blood pressure and oxygenation status stabilizing. Will continue to titrate drips as appropriate. Dr. Zabala at bedside and approves of all titrations at this time.
--- NOTE | 2022-01-04 00:28 | XRR_ITS ---
PROCEDURE INFORMATION: Exam: XR Chest Exam date and time: 01/04/2022 12:32 AM Age: 76 years old Clinical indication: Device placement; Ett placement (vent status); Patient HX: Check S/P intubation. Og tube also in place. TECHNIQUE: Imaging protocol: Radiologic exam of the chest. Views: 1 view. COMPARISON: CR (CHEST, ) 01/03/2022 9:42 PM FINDINGS: Tubes, catheters and devices: Enteric tube tip is over the fundus of the stomach (proximal stomach). Lungs: Increased duvr-nr-osufjrvr nonspecific right-sided pulmonary opacities most consistent with pneumonia. Pleural spaces: Unremarkable. No pleural effusion. No pneumothorax. Heart/Mediastinum: Unremarkable. No cardiomegaly. Bones/joints: Unremarkable. XR/XR chest 1V portable [id number] IMPRESSION: 1. Increased lihs-lf-jwppnpsh nonspecific right-sided pulmonary opacities most consistent with pneumonia. 2. Enteric tube tip is over the fundus of the stomach (proximal stomach).
--- NOTE | 2022-01-04 01:22 | XRR_ITS ---
PROCEDURE INFORMATION: Exam: XR Chest Exam date and time: 01/04/2022 1:25 AM Age: 76 years old Clinical indication: Other vascular access device placement or adjustment; Central line, tunnelled; Patient HX: Check S/P central line placement TECHNIQUE: Imaging protocol: Radiologic exam of the chest. Views: 1 view. COMPARISON: CR (CHEST, ) 01/04/2022 12:32 AM FINDINGS: Tubes, catheters and devices: Endotracheal tube tip over the distal trachea, 3 cm proximal to the ameya. Stable enteric tube tip over the fundus of the stomach (proximal stomach). Interval placement of right IJ catheter with tip over the distal SVC. Lungs: Continued cmzn-bj-qjmhtxcz right-sided pulmonary opacities most consistent with pneumonia. Pleural spaces: Unremarkable. No pleural effusion. No pneumothorax. Heart/Mediastinum: Unremarkable. No cardiomegaly. Bones/joints: Unremarkable. XR/XR chest 1V portable [id number] IMPRESSION: 1. Endotracheal tube tip over the distal trachea, 3 cm proximal to the ameya. 2. Stable enteric tube tip over the fundus of the stomach (proximal stomach). 3. Interval placement of right IJ catheter with tip over the distal SVC. 4. Continued afqg-sq-siojfofa right-sided pulmonary opacities most consistent with pneumonia.
--- NOTE | 2022-01-04 01:46 | P.PNCC_ITS ---
Critical Care Event Note The high probability of a clinically significant, sudden or life threatening deterioration of the patient's [] system(s) required my full and direct attention, intervention and personal management. The critical care time is as shown. This time is in addition to time spent performing any reported procedures but includes the following: [x] Data and vital sign review and interpretation [x] Patient assessment, examination and intervention [x] Documentation [x] Medication orders and management Critical Care Time Code activated: No Critical Care Time (min): 45 Additional information about critical care time: Patient was examined multiple times throughout the evening, he was alert and oriented x3, denies any prior cardiovascular history, denies a history of CVAs, denies a history of renal failure, he does report shortness of breath, patient agreed to intubation mechanical ventilation central line placement if required, was tachypneic respiratory in the 40s, blood pressure is becoming soft, placed on maximum dose Levophed, vasopressin. Throughout the evening his mentation decline, becoming increasingly confused, pulling on his lines and catheters, still tachypneic respiratory in the 40s, blood pressure soft maps greater than 65 however max dose Levophed, vasopressin, I was called to evaluate patient, as patient's blood pressures were undetectable, had a pulse, upon evaluation, patient was placed on dopamine, patient was tachypneic, respiratory rate 30s to 40s, pulse ox could not detect an O2 sat, as patient was diaphoretic. No loss of pulse, decision was made to pursue intubation. Patient received rapid sequence intubation, was obtained, positive color change, lung sounds were heard in bilateral lung stevens although diminished in bilateral lung stevens. Chest x- ray confirmed position of central line. Patient had a central line placed by me, tolerated procedure well, chest x-ray confirmed position. Patient's blood pressures improved, MAP around 65, on 3 pressors, placed on propofol and fentanyl for sedation. Earlier on I had given him a dose of Bumex he had not responded. I have also placed him on a Lasix drip. -I had a family discussion with patient's and daughter. -I discussed my concerns for cardiogenic shock and septic shock. -He is also in multiorgan failure, acute liver failure, acute renal failure, with rhabdomyolysis -Likely source of infection is pneumonia however a styles CT is pending -I advised family that given his drop in urine output, acute renal failure, I will try him on a Lasix drip, if he does not improve he will likely require dialysis to help with fluid removal, help with electrolyte correction, in addition as there is plans on potentially performing a coronary angiogram, proceeding with coronary angiography while he is on dialysis -I advised family that I think that he is NSTEMI, troponin elevation is likely from the septic shock, with underlying CAD that now is becoming evident given his septic shock. However he is 76, he is never had a cardiac evaluation he could also be developing septic shock from an cardiac etiology in addition that is separate from the septic shock -I have discussed with cardiology, echocardiogram shows an EF of 30%, diffuse hypokinesia, given his acute renal failure initially there was plans on not performing a coronary angiogram -However if he does get dialysis, then it would be easier to go ahead and do a coronary angiogram while he is intubated -Currently he is on 100% FiO2, ABG pending, good tidal volumes, -He is on fentanyl, propofol -He is on Levophed, vasopressin, dopamine, I will try dobutamine but there is a national shortage of dobutamine -I discussed patient's CODE STATUS, for now if family wants to continue full code -I advised patient's family that currently patient's prognosis is guarded, statuses critical -Future directives is monitoring his acute renal failure, deciding when to do dialysis -In terms of his NSTEMI, decision when to pursue coronary angiogram preferably sooner -In terms of his septic shock I will broaden his antibiotic coverage to Primaxin stop cefepime -IN addition I have stopped his heparin drip and switched him to therapeutic Lovenox, given the volume that is associated with heparin, I do not want to further or for volume overload him Coding Level 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
[2022-01-04 01:47] LABS: ABG PCO2 29.8 mmHg (35-45); ABG PH Result 7.19 (7.35-7.45); Base Excess ABG -15.4 mmol/L (-2.0-2.0); HCO3 ABG 11.4 mmol/L (22-26); Oxygen Saturation ABG 96.1
[2022-01-04 01:48] LABS: Blood Gas Drawn By BISJE; Blood Gas Vent Mode VC/AC; Oxygen Device VENT; Potassium Level - ABG 4.6 mmol/L (3.5-5.0)
[2022-01-04 01:49] LABS: Arterial Blood Gas Hematocrit 37.1 % (42-52)
[2022-01-04 01:50] LABS: Carboxyhemoglobin 0.6 %THgb (0.4-20.1); HGB O2 Sat 94.8 % (95-100); Methemoglobin 0.8 % (0.4-1.5); Total Hemoglobin 12.1 g/dL (14-18)
--- NOTE | 2022-01-04 01:54 | P.ANES_ITS ---
Anesthesia Procedures Procedure/Date: 01/04/22 Intubation: Time Out Performed: Yes Consent: patient agrees to proceed and emergency procedure Sedative (amount): etomidate Paralytic (amount): succinylcholine Laryngoscope: fiber optic video scope Assist Device Used: fiber optic device ET Tube Size: 7 ET Tube Uncuffed: Yes Tube Secured Depth (cm): 21 Tube Secured Location: teeth Tube Placement Confirmation: v isualized tube passing through cords, equal breath sounds bilaterally, no breath sounds over epigastrium, confirmation by capnometry and color change noted Patient Tolerated Procedure: well and no complications Intubation Complications: none
--- NOTE | 2022-01-04 01:55 | ANES.PROC ---
Anesthesia Procedures Procedure/Date: 01/04/22 Central Venous Insert: Time Out Performed: Yes Consent: from patient and emergency procedure Central Line: New Anesthesia monitors: pulse oximetry, EKG, BP cuff and oxygen Vein cannulated: right internal jugular Ultrasound used: to identify patency to vessel and to visualize needle entry to vein Post procedure: Obtain Chest X-Ray Additional Comments: Needle was used to cannulate right internal jugular artery, using ultrasound, ultrasound showed penetration of vein, obtained nonpulsatile dark red blood Guidewire was placed over needle, ultrasound confirmed placement of guidewire into right internal jugular artery X-ray confirmed position
[2022-01-04] MEDS: propofol 1,000 MG/100 ML INJ 30.6 MG (01:58)
[2022-01-04] MEDS: propofol 1,000 MG/100 ML INJ 28.58 MG IV ×5 (01:59→12:26)
[2022-01-04] MEDS: norepinephrine 8 MG in dextrose 5 % 500 ML 228.6 MG IV ×2 (02:00→04:06)
[2022-01-04 02:19] LABS: Uric Acid 14.5 mg/dL (3.4-7.0)
[2022-01-04 02:20] LABS: Complement C3 108 mg/dL (90-180)
[2022-01-04 02:29] LABS: Alkaline Phosphatase 109 U/L (40-130); Globulin 3.3 g/dL (1.3-4.6); Total Bilirubin 0.9 mg/dL (0.15-1.2)
[2022-01-04 02:39] LABS: INR 2.23 (0.8-1.2)
[2022-01-04 02:50] LABS: Cortisol Random 76.44 ug/dL (2.47-19.5)
[2022-01-04 02:51] LABS: Alanine Aminotransferase 983 U/L (0-41)
[2022-01-04] MEDS: sodium bicarbonate 8.4% 1 mEq/mL 50mL Syr 50 MEQ IVP ×2 (03:09→06:11)
[2022-01-04] MEDS: lidocaine 1% 5 ML in potassium chloride premix 100 ML 10 ML IV (03:10)
[2022-01-04] MEDS: hydrocortisone 100 mg/2 mL SDV 50 MG IVP (03:11)
[2022-01-04 03:20] LABS: Basophils # 0.1 10^3/uL (0.0-0.1); Basophils % 0.3 %; Eosinophils % 0.1 %; Hematocrit 32.4 % (42.0-52.0); Hemoglobin 10.5 g/dL (11.7-16.6); Lymphocytes # 1.4 10^3/uL (0.8-4.8); Lymphocytes % 6.8 %; Mean Corpuscular HGB Conc 32.4 g/dL (30.0-36.0); Mean Corpuscular Hemoglobin 29.8 pg (28.0-34.0); Mean Platelet Volume 12.1 fL (7.4-10.4); Monocytes # 0.9 10^3/uL (0.2-0.9); Monocytes % 4.6 %; Neutrophils # 17.27 10^3/uL (1.8-7.7); Neutrophils % 87.1 %; Nucleated Red Blood Cells % 0.2 %; Platelet Count 198 10^3/cmm (130-400); Red Blood Count 3.52 10^6/uL (4.1-5.3); Red Cell Distribution Width 14.2 % (12.1-15.1); White Blood Count 19.8 10^3/uL (4.0-10.0)
[2022-01-04 03:22] LABS: Chloride 98 mmol/L (98-107); Potassium 4.1 mmol/L (3.5-5.1); Sodium 135 mmol/L (136-145)
[2022-01-04 04:09] LABS: Albumin Level 2.8 g/dL (3.5-5.2); Anion Gap 29.1 (5-19); Blood Urea Nitrogen 65 mg/dL (8-23); C Reactive Protein 187.1 mg/L (0.0-4.9); Calcium 7.6 mg/dL (8.5-10.5); Carbon Dioxide 12 mmol/L (22-29); Glucose 314 mg/dL (65-115); Magnesium 2.4 mg/dL (1.7-2.3); Osmolality Calculated 311 mOsm/kg (285-295); Total Protein 6.1 g/dL (6.6-8.7)
[2022-01-04 04:35] LABS: Lactate (Lactic Acid level) 7.6 mmol/L (0.5-2.2)
[2022-01-04 04:35] LABS: Troponin 5 6HR 7383 ng/L (0-15); Troponin 5 6HR Delta 5850 ng/L (0-12)
[2022-01-04 04:36] LABS: Aspartate Amino Transferase 1905 U/L (0-40); Creatine Phosphokinase 8621 U/L (39-308)
--- NOTE | 2022-01-04 04:53 | PC.NURSE ---
Called Dr. Zabala and Dr. Martinez to update them on patient status. Dr. Martinez to call Dr. Zabala
--- NOTE | 2022-01-04 05:23 | PM.PN ---
Subjective Subjective: intubated, on multiple pressors Medications: Reviewed: Yes Medication Review Details: Current Medications Acetaminophen (Acetaminophen 500 Mg Tablet) 500 mg PO Q4H PRN PRN Reason: fever Last Admin: 01/03/22 22:55 Dose: 500 mg Albuterol/Ipratropium (Ipratropium-Albuterol 3 Ml Neb) 3 ml INHALATION Q6H PRN PRN Reason: SHORTNESS OF BREATH Alteplase, Recombinant (Alteplase 1 Mg/Ml Sdv 2 Ml) 0 mg INTRACATH Q2H PRN; Protocol PRN Reason: Poor Catheter Flow/ Clotted Catheter Aspirin (Aspirin 81 Mg Ec Tablet) 81 mg PO DAILY [facility] Atorvastatin Calcium (Atorvastatin 40 Mg Tablet) 80 mg PO DAILY [facility] Clopidogrel Bisulfate (Clopidogrel 75 Mg Tablet) 75 mg PO DAILY [facility] Dextrose (Dextrose 50% Syringe 50 Ml) 25 ml IVP ONCE PRN; Protocol PRN Reason: hypoglycemia protocol Dextrose (Dextrose 50% Syringe 50 Ml) 50 ml IVP PRN PRN; Protocol PRN Reason: hypoglycemia protocol Enoxaparin Sodium (Enoxaparin 80 Mg/0.8 Ml Syringe) 80 mg SUBCUT Q24H [facility] Last Admin: 01/03/22 23:07 Dose: 80 mg Glucagon (Glucagon 1 Mg/Ml Inj 1 Ml) 1 mg IM ONCE PRN; Protocol PRN Reason: Adult Acute Hypoglycemia Prot. Heparin Sodium (Porcine) (Heparin Lock Flush 500 Unit/5 Ml Syringe) 500 unit IV PRN PRN PRN Reason: At CRRT disconnect Heparin Sodium (Porcine) (Heparin, Porcine 1,000 Unit/Ml Inj 10 Ml) 1,000 unit CRRT PROTOCOL PRN; Protocol PRN Reason: Heparin CRRT subsequent bolus Protocol Amiodarone HCl 900 mg/Dextrose/ IV Miscellaneous Supplies 518 mls @ 0 mls/hr IV .Q0M [facility]; Protocol Last Admin: 01/03/22 19:33 Dose: 0.48 mg/min, 16.7 mls/hr Clindamycin HCl/Dextrose (Cleocin) 300 mg in 50 mls @ 100 mls/hr IV Q8H [facility]; Protocol Last Titration: 01/03/22 23:36 Dose: Infused Dextrose (D5w) 500 mls @ 100 mls/hr IV ONCE PRN; Protocol PRN Reason: Adult Acute Hypoglycemia Prot dexmedeTOMIDine 0.9 % NaCL (Precedex) 400 mcg in 100 mls @ 0 mls/hr IV .Q0M [facility]; Protocol Last Titration: 01/04/22 01:55 Dose: Infused Vancomycin/PEG/NADA/Lysine/Water (Vancocin) 1,250 mg in 250 mls @ 250 mls/hr IV Q36H [facility] Last Titration: 01/04/22 00:06 Dose: Infused Lidocaine HCl 5 ml/ Potassium (Chloride) 105 mls @ 25 mls/hr IV Q4H [facility] Stop: 01/04/22 05:44 Last Admin: 01/04/22 03:10 Dose: 10 mls/hr Vasopressin 100 unit/ Sodium (Chloride) 100 mls @ 0 mls/hr IV .Q0M [facility]; Protocol Last Admin: 01/04/22 02:01 Dose: 0.1 unit/min, 6 mls/hr Furosemide 100 mg/ Sodium (Chloride) 50 mls @ 0 mls/hr IV .Q0M [facility]; Protocol Propofol (Diprivan) 1,000 mg in 100 mls @ 0 mls/hr IV .Q0M [facility]; Protocol Last Admin: 01/04/22 03:37 Dose: 60 mcg/kg/min, 28.58 mls/hr Fentanyl 2,500 mcg/ Sodium (Chloride) 250 mls @ 0 mls/hr IV .Q0M [facility]; Protocol Last Titration: 01/04/22 01:45 Dose: 100 mcg/hr, 10 mls/hr Norepinephrine Bitartrate 8 mg (/ Dextrose) 508 mls @ 0 mls/hr IV .Q0M [facility]; Protocol Last Admin: 01/04/22 04:06 Dose: 60 mcg/min, 228.6 mls/hr Imipenem/Cilastatin Sodium 500 (mg/ Sodium Chloride) 100 mls @ 200 mls/hr IV Q6H [facility]; Protocol Last Titration: 01/04/22 03:39 Dose: Infused Dopamine HCl/Dextrose (Intropin Drip) 400 mg in 250 mls @ 14.884 mls/hr IV PRN [facility]; Protocol Heparin Sodium (Porcine) 20, (000 unit/ N/A) 20 mls @ 0 mls/hr CRRT .Q0M [facility]; Protocol Sodium Bicarbonate 50 meq/ (Sodium Chloride) 1,050 mls @ 100 mls/hr IV .[id number] [facility] Insulin Human Lispro (Insulin Lispro 100 Unit/1 Ml) 0 unit SUBCUT TIDWM [facility]; Protocol Ondansetron HCl (Ondansetron 2 Mg/Ml Sdv 2 Ml) 4 mg IVP Q6H PRN PRN Reason: NAUSEA AND VOMITING Sodium Chloride (Sodium Chloride 0.9% 1,000 Ml Bag) 1,000 - 7,000 ml CRRT PRN PRN PRN Reason: For priming CRRT Machine Vitals/I&O/Wt Last Vital Signs Temp 99.0 F 01/04/22 03:00 Pulse 84 01/04/22 04:15 Resp 16 01/04/22 04:12 BP 141/94 01/04/22 04:15 Pulse Ox 95 01/04/22 04:15 O2 Del Method 01/03/22 19:49 O2 Flow Rate 15 01/03/22 17:13 FiO2 100 01/04/22 04:12 01/03/22 01/03/22 01/04/22 14:59 22:59 06:59 Intake Total 1105.390 / 0348.915 4438.483 / 2147.873 Balance 1105.390 / 1895.482 4937.483 / 2147.873 Weight last 48 hrs Weight 79.379 kg Weight 79.379 kg Physical Exam Narrative: intubatedm vasopressin 0.1, levo @ 50 vent-rr 16/ tv 450/ fio2 100%, peep 8, + amio vs noted heent- nc/at, eomi, anicteric neck supple lung dull bases, and wheezes heart tachy, reg abd soft, nt, + bs ext no edema neuro- sedated Urinary Catheter Management: Zepeda: Cath Placed During This Visit: yes Reason for Continuing Indwelling Catheter: Accurate Measurement of Urinary Output in Critically Ill Patients Urinary Catheter Date of Insertion: 01/03/22 Urinary Catheter Time of Insertion: 18:44 Data : 01/04/22 01:28 01/04/22 01:28 Micro: Microbiology 01/03/22 20:28 Blood Culture - Preliminary Blood SPECIMEN COLLECTED 01/03/22 17:52 Blood Culture - Preliminary Blood SPECIMEN COLLECTED A&P Assessment and plan (1) MARK (acute kidney injury): 76 yr old man h/o htn and hyperlipidemia. he is here w/ 1 week of weakness and sob 1. NSTEMI- per cardiology- trop rising. will ask cardiology about cardiac cath- benefits outweigh risks- pt needs dialysis today 2. CHF- EF 30% 3. acid / base- met acidosis and lactic acidosis from [place] and septic shock -will give bicarb and recommend dialysis 4. MARK- family does not know of kidney disease in pt - please get old labs. -await renal us -check ua LIKELY ATN AND CRS -check serologies, eval for a renal- pulm syndrome -as oligo-anuric and met acidosis- will prepare for dialysis. pt is on 2 pressors. will attempt CRRT -monitor uop and chemistries 5. hyponatremia- check ur lytes and osm -tsh 0.19 -check am cortisol levels -na stable at 135 6. leukocytosis/ septic shock- abx per medicine and ID 7. elevated glucose- check hgb a1c 8.inc ck- can be rhabdo or cardiac- monitor 9 inc lft's- concern for cardiac cause or shocked liver pt is critically ill w combined septic and cardiogenic shock, MARK, VDRF- prognosis is poor. I discussed w/ pts and daughter. they are awaiting to speak to shoe sticks repairer. For now they want everything done. they consent to dialysis and understand risk of infection, bleeding, and hypotension seen and examined w/ RN- telehealth visit time spent seeing pt and chart review, coordinating care >35 min Status: Acute Plan see above Attestations Medical Necessity Statement*: multi-organ failure Time Spent in Patient Care: Greater than 35 minutes (>than 50% of time spent in counselling and/or direct pt care on unit). 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
[2022-01-04 05:40] LABS: ABG PCO2 38.6 mmHg (35-45); Arterial Blood Gas Hematocrit 32.1 % (42-52); Base Excess ABG -17.5 mmol/L (-2.0-2.0); Blood Gas Allen Test Pos; Blood Gas Operator Identificat JB; Blood Gas Sample Site Brachial, right; Blood Gas Sample Type Arterial; Blood Gas Tidal Volume 0.45; HCO3 ABG 11.5 mmol/L (22-26); Oxygen Device VENT
[2022-01-04 05:41] LABS: ABG PH Result 7.08 (7.35-7.45)
[2022-01-04 05:55] LABS: Calcium 7.8 mg/dL (8.5-10.5)
--- NOTE | 2022-01-04 06:08 | P.CONIM_ITS ---
Providers/Reason For Consult Consulting Physician/Specialty*: Mark Wright MD Reason for Consult*: Hemodialysis access Requesting Physician: Attending Physician: Herbert Monqiue MD Primary Care Provider: Maksim Farnsworth History of Present Illness History of Present Illness Mr. Abhijit Saez is a 76 year old male with multiple medical comorbidities and in critical condition in the ICU bed 3. Was admitted to the hospitalist service, as there was a concern about STEMI. Patient had elevated troponin. He was also diagnosed with A. fib and RVR. Found to have deteriorating kidney functions and helper/driver was consulted subsequently recommended for a temporary hemodialysis catheter access to start an urgent CRRT. General surgery was consulted earlier today for an urgent hemodialysis access. Bedside patient's and daughter were available and an informed consent was obtained from them Review of Systems General: Reports: ROS unobtainable due to endotracheal tube Medications/Allergies Allergies Allergy/AdvReac Type Severity Reaction Status Date / Time No Known Allergies Allergy Verified 01/04/22 07:08 Current Medications Generic Name Dose Route Start Last Admin Trade Name Freq PRN Reason Stop Dose Admin Acetaminophen 500 mg 01/03/22 21:08 01/03/22 22:55 Acetaminophen 500 Mg Tablet PO 500 mg Q4H PRN Administration fever Enoxaparin Sodium 80 mg 01/03/22 22:00 01/03/22 23:07 Enoxaparin 80 Mg/0.8 Ml Syringe SUBCUT 80 mg Q24H [facility] Administration Amiodarone HCl 900 mg/ 518 mls @ 0 mls/hr 01/03/22 18:45 01/03/22 19:33 Dextrose/ IV Miscellaneous IV 0.48 mg/min Supplies .Q0M [facility] 16.7 mls/hr Administration Protocol Per Protocol Clindamycin HCl/Dextrose 300 mg in 50 mls @ 100 mls/hr 01/03/22 22:00 01/03/22 23:36 Cleocin IV Infused Q8H [facility] Infusion Protocol dexmedeTOMIDine 0.9 % NaCL 400 mcg in 100 mls @ 0 mls/hr 01/03/22 21:30 01/04/22 01:55 Precedex IV Infused .Q0M [facility] Titration Protocol Per Protocol Vancomycin/PEG/NADA/Lysine/Water 1,250 mg in 250 mls @ 250 mls/hr 01/03/22 22:00 01/04/22 00:06 Vancocin IV Infused Q36H [facility] Infusion Vasopressin 100 unit/ Sodium 100 mls @ 0 mls/hr 01/03/22 23:00 01/04/22 02:01 Chloride IV 0.1 unit/min .Q0M [facility] 6 mls/hr Administration Protocol Per Protocol Propofol 1,000 mg in 100 mls @ 0 mls/hr 01/04/22 00:30 01/04/22 03:37 Diprivan IV 60 mcg/kg/min .Q0M [facility] 28.58 mls/hr Administration Protocol Per Protocol Fentanyl 2,500 mcg/ Sodium 250 mls @ 0 mls/hr 01/04/22 00:45 01/04/22 01:45 Chloride IV 100 mcg/hr .Q0M [facility] 10 mls/hr Titration Protocol Per Protocol Norepinephrine Bitartrate 8 mg 508 mls @ 0 mls/hr 01/04/22 01:30 01/04/22 04:06 / Dextrose IV 60 mcg/min .Q0M [facility] 228.6 mls/hr Administration Protocol Per Protocol Imipenem/Cilastatin Sodium 500 100 mls @ 200 mls/hr 01/04/22 02:00 01/04/22 03:39 mg/ Sodium Chloride IV Infused Q6H [facility] Infusion Protocol PFSH Acute PFSH: Medical History Dyslipidemia Hypertension Surgical History H/O lumbosacral spine surgery Family History Other CAD (coronary artery disease) Social History Smoking and tobacco status: former smoker Quit status (tobacco): has quit using tobacco Former quit date comment: 2 years ago Alcohol intake: never Substance/Drug Use: never Household members: spouse Vitals/I&O/Wt Last Vital Signs Temp 98.6 F 01/04/22 05:45 Pulse 85 01/04/22 06:00 Resp 16 01/04/22 04:12 BP 119/77 01/04/22 06:00 Pulse Ox 99 01/04/22 06:00 O2 Del Method 01/03/22 19:49 O2 Flow Rate 15 01/03/22 17:13 FiO2 100 01/04/22 04:12 01/03/22 01/03/22 01/04/22 14:59 22:59 06:59 Intake Total 1105.390 / 0188.627 3394.483 / 2147.873 Balance 1105.390 / 5456.262 9662.483 / 2147.873 Weight last 48 hrs Weight 187 lb Weight 175 lb Weight 175 lb Physical Exam Narrative: Patient is intubated and sedated on mechanical ventilation BMI 28.4 Head and neck examination PERRLA no masses no cervical lymphadenopathy no jaundice Right internal jugular vein central line placed by hospitalist service Cardiac examination audible S1-S2 no murmurs no gallops no arrhythmias Chest is clear bilateral,abscence of Rhonchi or wheezes,no surgical emphysema Abdomen nontender nondistended soft no organomegaly guarding or rigidity/no signs of peritonitis Right groin while palpable femoral artery Urinary Catheter Management: Zepeda: Cath Placed During This Visit: yes Reason for Continuing Indwelling Catheter: Accurate Measurement of Urinary Output in Critically Ill Patients Urinary Catheter Date of Insertion: 01/03/22 Urinary Catheter Time of Insertion: 18:44 Data : 01/04/22 06:28 01/04/22 01:28 Micro: Microbiology 01/03/22 20:28 Blood Culture - Preliminary Blood SPECIMEN COLLECTED 01/03/22 17:52 Blood Culture - Preliminary Blood SPECIMEN COLLECTED A&P Assessment and plan (1) MARK (acute kidney injury): Plan of care; After history physical examination and reviewing the chart and reviweing the images with my personal intrepretation.I counseled the patient's family for Temporary hemodialysis catheter placement, indications, risks including possibility of , stroke, heart attack, major bleeding particularly the patient has been on blood thinners, infection, pneumonia, organ failure, failure to benefit, prolonged hospital stay, pain after the procedure pneumothorax that may require Chest tube(s) placement and potential injury of major vascular structures that may require Thoractomy, benefits,indications and alternatives were all discussed with the patient's family and he expressed understanding and interested to proceed accordingly Rationale was carefully and clearly discussed with the patient's family .Appropriate informed consent have been reviewed and signed. Status: Acute Consult Attestations Medical Necessity Statement: Per admitting service Time Spent in Patient Care: Greater than 35 minutes Procedures Time out/Consent Time Out Performed: Yes Consent for Procedure: Consent obtained from other (indicate) (Spouse and daughter), Risks & Benefits reviewed and Agrees to proceed with procedure Procedure Narrative Placement of Right Femoral Vein HD catheter Pre Procedure diagnosis; acute kidney injury Postprocedure diagnoses the same Procedure done; placement of 11.5 Turkmen 16 cm temporary dialysis catheter right femoral vein under ultrasound guidance and all interpretation was done by me through the whole entire procedure. Medications were reviewed to assess for anticoagulant usage. Risks and benefits and prevention of central line associated blood stream infection (CLABSI) were discussed with the patient/CPOA, and a consent was obtained. Monitors were in place and monitored throughout the procedure. All necessary supplies were availa ble prior to start. Hand hygiene was completed prior to starting. Maximum barrier technique was utilized including a sterile gown, sterile gloves with a hat and mask. Site was was prepped with [chlorhexidine] and a full body drape was placed. 5 mL of 2% lidocaine was injected into the skin with a 25 gauge needle. Description Pre-prep ultrasound was done shows patency of the right femoral vein without intraluminal thrombosis with my personal interpretation. Prep& drape was done under the usual sterile technique of right groin area,Local anesthetic in the form of lidocaine infiltrated at the site of insertion of the catheter,ultrasound guidance(interpretation was done through the whole entire procedure by me )right femoral vein stick showed retrieval of venous blood.Then a guidewire was placed through the needle, the guidewire was secured to the drapes with a hemostat and the needle was taken out, 11 blade knife was used to create a skin incision at the site of insertion of the catheter followed by that serial dilators ,the dilator was then taken out, guide wire maintained to be in good position and the hemodialysis catheter 11.5 Turkmen was introduced onto the guidewire, with venous and arterial hubs were flushed and retrieved venous blood without difficulty. Hep-Lock's were then applied.3-0 nylon sutures were applied to secure the catheter to the patient's skin and a Biopatch was applied towards the hub of the catheter. 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
[2022-01-04] MEDS: FUROsemide 100 MG in sodium chloride 0.9% 40 ML 10 MG IV ×3 (06:13→22:15)
[2022-01-04] MEDS: sodium bicarbonate 50 MEQ in sodium chloride 0.45% 1,000 ML 100 MEQ IV (06:13)
--- NOTE | 2022-01-04 06:25 | PC.NURSE ---
Dr. Bishop at bedside assessing patient to place a dialysis line.
[2022-01-04 06:26] LABS: Iron 127 ug/dL (59-158); Percent Saturation 54.5 % (20-50); Total Iron Binding Capacity 233 mcg/dl; Unsaturated Iron Binding 106 ug/dL (112-347)
[2022-01-04 06:29] LABS: Parathyroid Hormone 617.4 pg/mL (15-65)
[2022-01-04] MEDS: bumetanide 0.25 mg/mL SDV 4 mL 1 MG IVP (06:29)
[2022-01-04 06:39] LABS: Basophils % 0.2 %; Eosinophils % 0.1 %; Hematocrit 30.6 % (42.0-52.0); Hemoglobin 10.1 g/dL (11.7-16.6); Lymphocytes # 1.2 10^3/uL (0.8-4.8); Lymphocytes % 6.2 %; Mean Corpuscular Volume 93.9 fl (80-94); Mean Platelet Volume 12.1 fL (7.4-10.4); Monocytes # 0.9 10^3/uL (0.2-0.9); Monocytes % 4.5 %; Neutrophils # 16.86 10^3/uL (1.8-7.7); Neutrophils % 87.6 %; Nucleated Red Blood Cells % 0 %; Platelet Count 192 10^3/cmm (130-400); Red Blood Count 3.26 10^6/uL (4.1-5.3); Red Cell Distribution Width 14.4 % (12.1-15.1); White Blood Count 19.2 10^3/uL (4.0-10.0)
[2022-01-04 06:42] LABS: 25 Hydroxy Vitamin D 25 ng/mL (30-100)
[2022-01-04 06:45] LABS: Adenovirus Not Detected (NOT DETECT); Chlamydia Pneumoniae Not Detected (NOT DETECT); Coronavirus 229E,HKU1,NL63,OC4 Not Detected (NOT DETECT); Human Metapneumovirus Not Detected (NOT DETECT); Human Rhinovirus/Enterovirus Not Detected (NOT DETECT); Influenza A Not Detected (NOT DETECT); Influenza A H1 Not Detected (NOT DETECT); Influenza A H1-2009 Not Detected (NOT DETECT); Influenza A H3 Not Detected (NOT DETECT); Influenza B Not Detected (NOT DETECT); Mycoplasma Pneumoniae Not Detected (NOT DETECT); Parainfluenza Virus Type 1 Not Detected (NOT DETECT); Parainfluenza Virus Type 2 Not Detected (NOT DETECT); Parainfluenza Virus Type 3 Not Detected (NOT DETECT); Parainfluenza Virus Type 4 Not Detected (NOT DETECT); Respiratory Syncytial Virus A Not Detected (NOT DETECT); Respiratory Syncytial Virus B Not Detected (NOT DETECT); SARS-COV-2 Not Detected (NOT DETECT)
[2022-01-04 07:16] LABS: Albumin Level 3.3 g/dL (3.5-5.2); Blood Urea Nitrogen 66 mg/dL (8-23); Carbon Dioxide 14 mmol/L (22-29); Chloride 90 mmol/L (98-107); Glucose 358 mg/dL (65-115); Magnesium 2.5 mg/dL (1.7-2.3); Sodium 131 mmol/L (136-145)
[2022-01-04 07:19] LABS: Phosphorus 9.9 mg/dL (2.5-4.5)
[2022-01-04 07:30] LABS: NT Pro B Type Natriuretic Pept 21 pg/mL (0-450)
[2022-01-04 07:30] LABS: Ketone (Acetest) Serum Negative (Negative)
[2022-01-04 07:36] LABS: Hepatitis B Core AB, Total Non-Reactive (Nonreactive); Hepatitis B Surface AB < 3.5 (11.5-1000); Hepatitis B Surface Antigen Non-Reactive (Nonreactive); Hepatitis C Virus Antibody Non-Reactive (Nonreactive)
[2022-01-04] MEDS: clindamycin 300 MG/50 ML PREMIX 100 MG IV ×3 (08:00→21:56)
[2022-01-04 08:02] LABS: Ferritin 3298 ng/mL (30-400)
[2022-01-04 08:05] LABS: Free T4 Free Thyroxine 1.35 ng/dL (0.82-1.77)
--- NOTE | 2022-01-04 08:13 | PC.PHAR ---
PT UNABLE TO VERIFY- MEDICATIONS VERIFIED USING EXTERNAL MED LIST LAST FILLED AND DS
[2022-01-04 08:17] LABS: Estmated Average Glucose 140; Hemoglobin A1C 6.5 % (4.0-6.0)
[2022-01-04] MEDS: PrismaSol BGK 2/3.5 - 5,000 ML BAG 5000 ML CRRT ×5 (08:33→12:02)
--- NOTE | 2022-01-04 08:55 | PC.NURSE ---
This nurse assumed care at 0700 Dr. Martinez called, gave t.o. for heparin drip or heparin syringe through CRRT, both per Heparin protocol, nurse choice Draw labs q6hrs and notify classified advertising manager correctional officer
[2022-01-04 08:58] LABS: Glucose Point of Care 335 mg/dL (70-110)
--- NOTE | 2022-01-04 09:24 | PC.NURSE ---
CRRT started per orders
--- NOTE | 2022-01-04 09:41 | PC.NURSE ---
Prismaflex showing return flow problem, gave possible solution to lower blood flow rate, blood flow rate decreased to 100 ml/min per CRRT order
[2022-01-04] MEDS: heparin drip 25,000 UNIT/500 ML PREMIX 25 UNIT IV (10:59)
[2022-01-04] MEDS: heparin 5,000 unit/mL INJ 1 mL IV (11:02)
[2022-01-04] MEDS: aspirin 81 mg EC Tablet PO (11:11)
[2022-01-04] MEDS: atorvastatin 40 mg Tablet 80 MG PO (11:11)
--- NOTE | 2022-01-04 11:12 | PC.NURSE ---
Approximately 1015, continued to have blood return flow and pressure problems, visible large clot in return line between machine and patient. Dialysis line flushed and aspirated fine. Icon advised to swap return and access lines, did not relieve issues, Icon advises to disconnect patient and start therapy again Dr. Khan was updated and approved heparin drip and to restart therapy after starting drip
[2022-01-04] MEDS: insulin lispro 100 unit/1 mL SUBCUT ×2 (11:19→17:21)
[2022-01-04] MEDS: sodium chloride 0.9% 1,000 mL Bag CRRT (11:25)
[2022-01-04] MEDS: sodium chloride 0.9 % (flush) syringe 10 mL IV ×2 (11:26→17:33)
[2022-01-04 11:29] LABS: Glucose Point of Care 329 mg/dL (70-110)
--- NOTE | 2022-01-04 12:00 | PM.PN ---
Subjective Subjective: Overnight events noted he was intubated and sedated Worsening rhabdomyolysis ATN CRRT started today Severe metabolic acidosis Bicarb drip initiated Family had decided to make him DNR/DNI Cardiology is not planning for any angiogram considering severe sepsis septic shock Currently he is on 2 vasopressors with anuria Vitals/I&O/Wt Last Vital Signs Temp 98.6 F 01/04/22 05:45 Pulse 70 01/04/22 11:30 Resp 18 01/04/22 11:47 BP 110/75 01/04/22 11:30 Pulse Ox 99 01/04/22 11:47 O2 Del Method 01/03/22 19:49 O2 Flow Rate 15 01/03/22 17:13 FiO2 60 01/04/22 11:47 01/03/22 01/04/22 01/04/22 22:59 06:59 14:59 Intake Total 1105.390 / 6686.612 9591.483 / 2147.873 100.953 / 100.953 Balance 1105.390 / 8186.411 7558.483 / 2147.873 100.953 / 100.953 Weight last 48 hrs Weight 84.822 kg Weight 79.379 kg Weight 79.379 kg Physical Exam Narrative: Patient is intubated and sedated Via crackles on I do not see skin mottling feet are cold no active signs of vascular site ischemic changes Currently on 2 vasopressors Abdomen soft Zepeda catheter without significant urine Neuro exam limited Urinary Catheter Management: Zepeda: Cath Placed During This Visit: yes Reason for Continuing Indwelling Catheter: Accurate Measurement of Urinary Output in Critically Ill Patients Urinary Catheter Date of Insertion: 01/03/22 Urinary Catheter Time of Insertion: 18:44 Data : 01/04/22 06:28 01/04/22 06:28 Micro: Microbiology 01/03/22 20:28 Blood Culture - Preliminary Blood SPECIMEN COLLECTED 01/03/22 17:52 Blood Culture - Preliminary Blood SPECIMEN COLLECTED A&P Assessment and plan (1) Rhabdomyolysis: Status: Acute (2) MARK (acute kidney injury): Status: Acute (3) Hypoxia: Status: Acute (4) CAP (community acquired pneumonia): Status: Acute (5) D-dimer, elevated: Status: Acute (6) Afib: Status: Acute (7) NSTEMI (non-ST elevated myocardial infarction): Status: Acute (8) Sepsis: Status: Acute (9) Septic shock: Status: Acute (10) ATN (acute tubular necrosis): Status: Acute (11) Hyperkalemia: Status: Acute Plan Septic shock Related to pneumonia Currently on 2 vasopressors Significant lactic acidemia Continue broad-spectrum antibiotics Multiorgan failure with septic shock Will add stress dose steroids, give him 1 dose of calcium gluconate ATN Related to rhabdomyolysis and sepsis CRRT started Hyperkalemia with severe acidosis Bicarb drip added Rhabdomyolysis Worsening CPK Anticipating provement after dialysis Respiratory failure requiring mechanical ventilation Intubated 01/04 Currently. 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
[2022-01-04] MEDS: norepinephrine 8 MG in dextrose 5 % 500 ML 190.5 MG IV (12:26)
[2022-01-04 12:38] LABS: Albumin Level 2.8 g/dL (3.5-5.2); Blood Urea Nitrogen 62 mg/dL (8-23); Calcium 6.5 mg/dL (8.5-10.5); Carbon Dioxide 11 mmol/L (22-29); Chloride 88 mmol/L (98-107); Glucose 363 mg/dL (65-115); Magnesium 2.4 mg/dL (1.7-2.3); Sodium 126 mmol/L (136-145)
[2022-01-04 12:41] LABS: Phosphorus 10.8 mg/dL (2.5-4.5)
[2022-01-04 12:42] LABS: Anion Gap 33.3 (5-19); Potassium 6.3 mmol/L (3.5-5.1)
--- NOTE | 2022-01-04 12:43 | PM.PN ---
Subjective Subjective: Patient was intubated overnight secondary to respiratory failure. Has developed septic shock with shock liver and worsening MARK. Echocardiogram shows at least moderate reduction in LV systolic function with severe low flow low gradient aortic stenosis. Vitals/I&O/Wt Last Vital Signs Temp 98.6 F 01/04/22 05:45 Pulse 70 01/04/22 11:30 Resp 18 01/04/22 11:47 BP 110/75 01/04/22 11:30 Pulse Ox 99 01/04/22 11:47 O2 Del Method 01/03/22 19:49 O2 Flow Rate 15 01/03/22 17:13 FiO2 60 01/04/22 11:47 01/03/22 01/04/22 01/04/22 22:59 06:59 14:59 Intake Total 1105.390 / 0612.591 2341.483 / 2655.873 220.498 / 220.498 Balance 1105.390 / 1288.313 6704.483 / 2655.873 220.498 / 220.498 Weight last 48 hrs Weight 187 lb Weight 175 lb Weight 175 lb Physical Exam Narrative: GENERAL: Patient is intubated and sedated HEART: Regular, grade 3/6 systolic murmur LUNGS: Diminished breath sounds bilaterally CENTRAL NERVOUS SYSTEM: Grossly nonfocal. [] EXTREMITIES: Lower extremities with 1+ edema bilaterally. Pulses palpable in the lower extremities, both dorsalis pedis and posterior tibial. [] Urinary Catheter Management: Zepeda: Cath Placed During This Visit: yes Reason for Continuing Indwelling Catheter: Accurate Measurement of Urinary Output in Critically Ill Patients Urinary Catheter Date of Insertion: 01/03/22 Urinary Catheter Time of Insertion: 18:44 Data : 01/04/22 20:53 01/04/22 17:38 Micro: Microbiology 01/03/22 20:28 Blood Culture - Preliminary Blood SPECIMEN COLLECTED 01/03/22 17:52 Blood Culture - Preliminary Blood SPECIMEN COLLECTED A&P Assessment and plan (1) NSTEMI (non-ST elevated myocardial infarction): Status: Acute (2) Sepsis: Status: Acute (3) Afib: Status: Acute (4) D-dimer, elevated: Status: Acute (5) CAP (community acquired pneumonia): Status: Acute (6) MARK (acute kidney injury): Status: Acute (7) Severe aortic stenosis: Status: Acute Plan Significant troponin elevation. LV systolic function is at least moderately reduced with the severe low-flow low gradient aortic stenosis. Likely demand ischemia in the setting of septic shock, severe aortic stenosis and possible underlying severe CAD. His prognosis is guarded. I had a detailed discussion with the patient's family regarding all possible options. He has septic shock, shock liver, MARK now requiring dialysis. Decision made to treat medically at this time. If there is significant improvement in the clinical status with medical therapy, we can consider invasive procedures. Continue heparin drip Thank you for involving us with care of this patient. We will continue to follow. Please call with questions. Attestations Medical Necessity Statement*: Care expected to cross 2 midnights. Coding Level of Care Code Acute Development Coach for [facility] Diagnoses NSTEMI (non-ST elevated myocardial infarction) I21.4 Sepsis A41.9 Afib I48.91 D-dimer, elevated R79.89 CAP (community acquired pneumonia) J18.9 MARK (acute kidney injury) N17.9 Severe aortic stenosis I35.0
--- NOTE | 2022-01-04 13:28 | PM.PN ---
Subjective Subjective: unable to achieve adequate flow from right femoral HD catheter for CVVHD. Catheter flushed, cartridge and lines changed and heparin added without success Vitals/I&O/Wt Last Vital Signs Temp 98.6 F 01/04/22 05:45 Pulse 70 01/04/22 11:30 Resp 18 01/04/22 11:47 BP 110/75 01/04/22 11:30 Pulse Ox 99 01/04/22 11:47 O2 Del Method 01/03/22 19:49 O2 Flow Rate 15 01/03/22 17:13 FiO2 60 01/04/22 11:47 01/03/22 01/04/22 01/04/22 22:59 06:59 14:59 Intake Total 1105.390 / 8971.542 1648.483 / 2655.873 220.498 / 220.498 Balance 1105.390 / 5562.829 9351.483 / 2655.873 220.498 / 220.498 Weight last 48 hrs Weight 84.822 kg Weight 79.379 kg Weight 79.379 kg Physical Exam Urinary Catheter Management: Zepeda: Cath Placed During This Visit: yes Reason for Continuing Indwelling Catheter: Accurate Measurement of Urinary Output in Critically Ill Patients Urinary Catheter Date of Insertion: 01/03/22 Urinary Catheter Time of Insertion: 18:44 Data : 01/04/22 06:28 01/04/22 12:09 Other Labs: CK > 8000 Micro: Microbiology 01/03/22 20:28 Blood Culture - Preliminary Blood SPECIMEN COLLECTED 01/03/22 17:52 Blood Culture - Preliminary Blood SPECIMEN COLLECTED US: Radiologist's impression: 1.? Zepeda catheter. 2.? Mild RIGHT renal cortical atrophy. 3.? Normal LEFT kidney. 4.? No hydronephrosis in either kidney. A&P Assessment and plan (1) Hyperkalemia: Status: Acute Plan 1. Acute anuric kidney injury: ischemic ATN, rhabdomyolysis, sepsis 2. Severe metabolic acidosis, hyperkalemia 3. Pneumonia, VDRF 4. NSTEMI I spoke with daughter Indigo. She is agreeable to trying hemodialysis. I told her this will likely not work nor be tolerated. Will try dialysis, no fluid removal, 2K bath, 4h Repeat BMP. Change bicarbonate gtt to 150mEq/L at 100 ml/hr Prognosis grave. Family aware. DNR. 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
--- NOTE | 2022-01-04 13:40 | PC.NURSE ---
CRRT restarted approximately 1230, about 1250 Access extremly negative, air noted in access line, return pressure dropping, Icon advised to stop tx, unable to return blood. Dr. Vaugahn notified, order given for HD dialysis and stop CRRT. Dr. Monique at bedside, Daughter spoke with Dr. Vaughan
[2022-01-04] MEDS: calcium gluconate 0.9% NaCL 1 GM/50 ML PREMIX IV (13:52)
[2022-01-04] MEDS: hydrocortisone 100 mg/2 mL SDV IVP (13:53)
[2022-01-04 14:00] LABS: Basophils % 0.2 %; Hematocrit 28.9 % (42.0-52.0); Hemoglobin 9.4 g/dL (11.7-16.6); Lymphocytes # 1.5 10^3/uL (0.8-4.8); Lymphocytes % 7.2 %; Mean Corpuscular HGB Conc 32.5 g/dL (30.0-36.0); Mean Corpuscular Hemoglobin 31.9 pg (28.0-34.0); Mean Platelet Volume 12.5 fL (7.4-10.4); Monocytes # 1.1 10^3/uL (0.2-0.9); Monocytes % 5.4 %; Neutrophils # 17.98 10^3/uL (1.8-7.7); Neutrophils % 85.3 %; Nucleated Red Blood Cells # 0.1 /100WBC; Nucleated Red Blood Cells % 0.3 %; Platelet Count 155 10^3/cmm (130-400); Red Blood Count 2.95 10^6/uL (4.1-5.3); Red Cell Distribution Width 14.6 % (12.1-15.1); White Blood Count 21.1 10^3/uL (4.0-10.0)
[2022-01-04 14:16] LABS: Blood Urea Nitrogen 63 mg/dL (8-23); Calcium 6.2 mg/dL (8.5-10.5); Carbon Dioxide 12 mmol/L (22-29); Chloride 86 mmol/L (98-107); Glucose 362 mg/dL (65-115); Osmolality Calculated 289 mOsm/kg (285-295); Sodium 123 mmol/L (136-145)
[2022-01-04 14:17] LABS: Anion Gap 31.2 (5-19); Potassium 6.2 mmol/L (3.5-5.1)
[2022-01-04] MEDS: norepinephrine 8 MG in dextrose 5 % 500 ML 152.4 MG IV (14:40)
--- NOTE | 2022-01-04 14:40 | PC.NURSE ---
HD Dialysis nurse informed this nurse she is unable to get the Dialysis cath to work, Dr. Vega informed her he will be by in a couple hours and will try to adress the catheter
[2022-01-04] MEDS: EPINEPHrine 2.5 MG in sodium chloride 0.9% 250 ML 51.4 MG IV ×2 (15:51→20:26)
--- NOTE | 2022-01-04 16:09 | PC.NURSE ---
Dr. Ellis placed new dialysis cath to left femoral
[2022-01-04] MEDS: propofol 1,000 MG/100 ML INJ 16.67 MG IV (16:32)
--- NOTE | 2022-01-04 16:39 | PM.ACPR ---
Procedure/Consent Time out: Time Out Performed: Yes Consent: Consent for Procedure: Consent obtained from other (indicate) Additional Consent Information: and daughter Procedure Narrative: Name of the procedure: Left femoral vein hemodialysis catheter insertion under ultrasound guidance. Medications: Lidocaine 1% 5 mL. IV medications: Precedex and fentanyl drip Consent: Obtained from his and daughter. The patient was on heparin drip and the increased risk of bleeding was explained in detail to the patient's family. Description of the procedure: The left femoral vein was identified under ultrasound guidance with collapsibility and lack of pulsatility. The site was prepared using sterile technique and the patient was positioned optimally. The skin, subcutaneous tissue was anesthetized with 1% lidocaine. The introducer needle was then advanced under direct ultrasound guidance to flashback was noted. Dark nonpulsatile blood was noted. The guidewire was advanced through the needle and confirmed to be in the left femoral vein with ultrasound. Using Seldinger technique the left femoral vein hemodialysis catheter was inserted. The catheter was sutured in place. The insertion length was 20 cm. The catheter was heparin locked. Complications: None Blood loss: 2 mL Acute Procedures Epistaxis Control: Time out performed: Yes
[2022-01-04] MEDS: sodium bicarbonate 150 MEQ in dextrose 5% 1,000 ML 100 MEQ IV (16:41)
[2022-01-04 16:56] LABS: Glucose Point of Care 357 mg/dL (70-110)
[2022-01-04] MEDS: norepinephrine 8 MG in dextrose 5 % 500 ML 95.25 MG IV (18:19)
[2022-01-04 18:28] LABS: Partial Thromboplastin Time 63.5 SECONDS (23.9-36.7)
[2022-01-04 19:07] LABS: Albumin Level 2.6 g/dL (3.5-5.2); Alkaline Phosphatase 136 U/L (40-130); Blood Urea Nitrogen 50 mg/dL (8-23); Calcium 6.9 mg/dL (8.5-10.5); Carbon Dioxide 14 mmol/L (22-29); Chloride 90 mmol/L (98-107); Globulin 2.5 g/dL (1.3-4.6); Glucose 308 mg/dL (65-115); Osmolality Calculated 297 mOsm/kg (285-295); Sodium 131 mmol/L (136-145); Total Protein 5.1 g/dL (6.6-8.7)
[2022-01-04 19:15] LABS: Creatinine Clr Calc Pharmacy 16.6597
[2022-01-04 19:16] LABS: Anion Gap 31.6 (5-19); Potassium 4.6 mmol/L (3.5-5.1)
[2022-01-04 19:19] LABS: Alanine Aminotransferase 5132 U/L (0-41)
[2022-01-04 21:01] LABS: Basophils # 0.1 10^3/uL (0.0-0.1); Basophils % 0.3 %; Eosinophils # 0.3 10^3/uL (0.0-0.8); Eosinophils % 1.3 %; Hemoglobin 10.2 g/dL (11.7-16.6); Lymphocytes # 1.8 10^3/uL (0.8-4.8); Lymphocytes % 6.9 %; Mean Corpuscular Hemoglobin 31.3 pg (28.0-34.0); Mean Platelet Volume 11.8 fL (7.4-10.4); Monocytes % 3.9 %; Neutrophils % 85.1 %; Nucleated Red Blood Cells # 0.2 /100WBC; Nucleated Red Blood Cells % 0.7 %; Platelet Count 151 10^3/cmm (130-400); Positive M 1; Red Blood Count 3.26 10^6/uL (4.1-5.3); Red Cell Distribution Width 14.3 % (12.1-15.1); White Blood Count 25.6 10^3/uL (4.0-10.0)
[2022-01-04 22:11] LABS: Glucose Point of Care 207 mg/dL (70-110)
[2022-01-04] MEDS: pantoprazole DR 40 mg Tablet PO (22:19)
--- NOTE | 2022-01-04 22:45 | PC.NURSE ---
During initial shift assessment 50ml of bloody gastric content aspirated from OG tube, HCP notified and ordered intermittent suction to be applied and order for PO protonix received. Levophed titrated down as BP steadily increased through the end of dialysis treatment. Patient went into controlled A flutter out of A fib during this time. Hospitalist notified of change with no new orders given at this time. Patient remains unresponsive with fixed unequal pupils.
--- NOTE | 2022-01-04 23:19 | US_ITS ---
WS: [id number] ULTRASOUND RENAL TECHNIQUE: Ultrasound examination of both kidneys. CLINICAL INFORMATION: katy COMPARISON: None. FINDINGS: RIGHT: Mild RIGHT renal cortical atrophy. Echogenicity: Normal. Hydronephrosis: None. Perinephric fluid: None. Right kidney measures: 9.2 cm x 4.7 cm x 4.5 cm. LEFT: Left kidney is normal in size and appearance. Echogenicity: Normal. Hydronephrosis: None. Perinephric fluid: None. Left kidney measures: 10.1 cm x 6.1 cm x 5.9 cm. Normal visualized aorta. Zepeda catheter. US/US renal BI* [id number] IMPRESSION: 1. Zepeda catheter. 2. Mild RIGHT renal cortical atrophy. 3. Normal LEFT kidney. 4. No hydronephrosis in either kidney.
[2022-01-05] VITALS (67 sets, daily range): BP systolic 83–141; BP diastolic 57–81; PULSE 75–105; RESP 18; TEMP 36.8–38.4; O2SAT 84–100
[2022-01-05] MEDS: propofol 1,000 MG/100 ML INJ 16.67 MG IV ×2 (00:16→08:15)
[2022-01-05] MEDS: hydrocortisone 100 mg/2 mL SDV IVP ×2 (01:02→13:47)
[2022-01-05] MEDS: EPINEPHrine 2.5 MG in sodium chloride 0.9% 250 ML 51.4 MG IV (01:29)
[2022-01-05 03:24] LABS: Slide Review Slide Review Perform
[2022-01-05 03:36] LABS: Creatine Phosphokinase 8707 U/L (39-308)
[2022-01-05] MEDS: FUROsemide 100 MG in sodium chloride 0.9% 40 ML 10 MG IV (03:46)
[2022-01-05 04:36] LABS: Glucose Point of Care 227 mg/dL (70-110)
[2022-01-05 04:42] LABS: ABG PCO2 34.1 mmHg (35-45); Alveolar-Arterial Oxygen Gradi 68.4 mmHg (5-10); Arterial Blood Gas Hematocrit 31.8 % (42-52); Base Excess ABG -15.5 mmol/L (-2.0-2.0); Blood Gas Operator Identificat JB; Blood Gas Sample Site Brachial, right; Blood Gas Sample Type Arterial; Carboxyhemoglobin < 1.0 %THgb (0.4-20.1); HCO3 ABG 12.1 mmol/L (22-26); HGB O2 Sat 97.4 % (95-100); Ionized Calcium Level - ABG 0.8 mmol/L (1.1-1.4); Methemoglobin 0.9 % (0.4-1.5); Oxygen Device VENT; Oxygen Saturation ABG 98.8; Potassium Level - ABG 3.8 mmol/L (3.5-5.0); Total Hemoglobin 10.4 g/dL (14-18)
[2022-01-05] MEDS: calcium gluconate 0.9% NaCL 1 GM/50 ML PREMIX IV (04:48)
[2022-01-05 05:01] LABS: CKMB 75.4 ng/mL (0-10.4)
[2022-01-05 05:11] LABS: CKMB Relative Index 0.8 % (0.0-5.3)
[2022-01-05] MEDS: sodium bicarbonate 150 MEQ in dextrose 5% 1,000 ML 100 MEQ IV (05:11)
[2022-01-05] MEDS: EPINEPHrine 2.5 MG in sodium chloride 0.9% 250 ML 77.1 MG IV (05:28)
[2022-01-05 05:41] LABS: Partial Thromboplastin Time 58.3 SECONDS (23.9-36.7)
[2022-01-05] MEDS: clindamycin 300 MG/50 ML PREMIX 100 MG IV (06:09)
[2022-01-05 06:25] LABS: Bilirubin Urine Neg (Negative); Blood Urine 3+ (Negative); Glucose Urine UA 1+ (Normal); Ketones Urine 1+ (Negative); Leukocyte Esterase Urine 1+ (Negative); Nitrate Urine Negative (Negative); Protein Urine 3+ (Negative); Urine Appearance SL Hazy (CLEAR); Urine Color Yellow (Yellow); Urobilinogen Urine 1 mg/dL (Negative); pH Urine 5 (5-7)
[2022-01-05 06:26] LABS: Bacteria Urine 2+ /hpf; WBC Urine 0-4 /hpf (0-5)
[2022-01-05 06:27] LABS: Add Urine Culture? Yes; Amorphous Sediment Urine 1+ /hpf
[2022-01-05 07:13] LABS: Glucose Point of Care 256 mg/dL (70-110)
--- NOTE | 2022-01-05 07:35 | PM.PN ---
Subjective Subjective: Tolerated 4h HD yesterday, levophed requirement decreased. Remains on 3 pressors. Remains anuric Vitals/I&O/Wt Last Vital Signs Temp 99.4 F 01/05/22 06:00 Pulse 96 01/05/22 06:15 Resp 18 01/05/22 06:35 BP 105/67 01/05/22 06:15 Pulse Ox 98 01/05/22 06:35 O2 Del Method 01/03/22 19:49 O2 Flow Rate 15 01/03/22 17:13 FiO2 60 01/05/22 06:35 01/04/22 01/05/22 01/05/22 22:59 06:59 14:59 Intake Total 1945.816 / 2791.764 3001.047 / 5792.811 Output Total 0 / 0 215 / 215 Balance 1945.816 / 2791.764 2786.047 / 5577.811 Weight last 48 hrs Weight 88.3 kg Weight 84.822 kg Weight 79.379 kg Weight 79.379 kg Physical Exam Narrative: intubated, sedated GI: OTHER: abdomen distended Skin: NARRATIVE SKIN EXAM: diffusely mottled Urinary Catheter Management: Zepeda: Cath Placed During This Visit: yes Reason for Continuing Indwelling Catheter: Accurate Measurement of Urinary Output in Critically Ill Patients Urinary Catheter Date of Insertion: 01/03/22 Urinary Catheter Time of Insertion: 18:44 Data : 01/04/22 20:53 01/04/22 17:38 Micro: Microbiology 01/03/22 20:28 Blood Culture - Preliminary Blood NEGATIVE TO DATE 01/03/22 17:52 Blood Culture - Preliminary Blood NEGATIVE TO DATE 01/04/22 04:55 MRSA Culture - Final Nose ABG Interpretation 1: 01/03/22 01/04/22 01/04/22 17:15 01:39 05:26 ABG pH 7.45 7.19 L 7.08 L* ABG pCO2 21.0 L 29.8 L 38.6 ABG pO2 52.5 L 103.0 H 154.0 H ABG HCO3 14.7 L 11.4 L 11.5 L ABG O2 Saturation 87.6 96.1 ABG Base Excess -7.3 L -15.4 L -17.5 L 01/05/22 04:28 ABG pH 7.16 L* ABG pCO2 34.1 L ABG pO2 146.0 H ABG HCO3 12.1 L ABG O2 Saturation 98.8 ABG Base Excess -15.5 L My Interpretation: primary metabolic acidosis A&P Assessment and plan (1) Hyperkalemia: Status: Acute Plan 1. Acute anuric kidney injury: ischemic ATN, rhabdomyolysis, sepsis 2. Severe metabolic acidosis, hyperkalemia - improved after HD yesterday 3. Pneumonia, VDRF 4. NSTEMI Hemodialysis this AM, 500 ml fluid removal, 2K bath, 4h. May try to resume CVVHD later today. Repeat BMP. Continue bicarbonate gtt 150mEq/L at 100 ml/hr Prognosis grave. Family aware. DNR. 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
[2022-01-05] MEDS: heparin drip 25,000 UNIT/500 ML PREMIX 25 UNIT IV (08:12)
[2022-01-05] MEDS: EPINEPHrine 2.5 MG in sodium chloride 0.9% 250 ML 102.8 MG IV ×2 (08:16→10:40)
[2022-01-05 08:18] LABS: Basophils # 0.2 10^3/uL (0.0-0.1); Basophils % 0.7 %; Hematocrit 34.4 % (42.0-52.0); Lymphocytes % 4.2 %; Mean Corpuscular HGB Conc 29.1 g/dL (30.0-36.0); Mean Corpuscular Hemoglobin 31.3 pg (28.0-34.0); Mean Corpuscular Volume 107.5 fl (80-94); Mean Platelet Volume 12.5 fL (7.4-10.4); Monocytes # 1.3 10^3/uL (0.2-0.9); Monocytes % 5.4 %; Neutrophils # 21.59 10^3/uL (1.8-7.7); Neutrophils % 86.5 %; Nucleated Red Blood Cells # 0.5 /100WBC; Nucleated Red Blood Cells % 1.8 %; Platelet Count 112 10^3/cmm (130-400); Red Cell Distribution Width 14.8 % (12.1-15.1)
[2022-01-05 08:31] LABS: Partial Thromboplastin Time 55.3 SECONDS (23.9-36.7)
[2022-01-05 08:33] LABS: Albumin Level 2.4 g/dL (3.5-5.2); Alkaline Phosphatase 215 U/L (40-130); Blood Urea Nitrogen 35 mg/dL (8-23); Calcium 6.8 mg/dL (8.5-10.5); Carbon Dioxide 10 mmol/L (22-29); Chloride 88 mmol/L (98-107); Globulin 2.4 g/dL (1.3-4.6); Glucose 238 mg/dL (65-115); Osmolality Calculated 288 mOsm/kg (285-295); Sodium 131 mmol/L (136-145); Total Protein 4.8 g/dL (6.6-8.7)
[2022-01-05 08:41] LABS: Anion Gap 37.6 (5-19); Potassium 4.6 mmol/L (3.5-5.1)
[2022-01-05] MEDS: aspirin 81 mg EC Tablet PO (09:09)
[2022-01-05] MEDS: atorvastatin 40 mg Tablet 80 MG PO (09:09)
[2022-01-05] MEDS: pantoprazole DR 40 mg Tablet PO (09:10)
[2022-01-05] MEDS: insulin lispro 100 unit/1 mL SUBCUT ×2 (09:10→13:46)
[2022-01-05] MEDS: vancomycin 1,250 MG/250 ML PIGGYBACK 250 MG IV (09:10)
[2022-01-05 09:19] LABS: Alanine Aminotransferase 6024 U/L (0-41)
[2022-01-05 09:20] LABS: Aspartate Amino Transferase 2421 U/L (0-40)
[2022-01-05 09:45] LABS: ABG PH Result 7.16 (7.35-7.45)
--- NOTE | 2022-01-05 10:15 | PM.PN ---
Subjective Subjective: Patient is febrile AnUric Levophed requirement is at 7 today He was given IV steroids and epi yesterday Mild skin mottling around left flank area, petechia of scrotal area Intubated and sedated Neuro dialysis catheter was placed right femoral line Vitals/I&O/Wt Last Vital Signs Temp 101.2 F H 01/05/22 09:56 Pulse 90 01/05/22 09:56 Resp 18 01/05/22 09:56 BP 99/68 01/05/22 09:56 Pulse Ox 100 01/05/22 09:56 O2 Del Method 01/05/22 09:56 O2 Flow Rate 15 01/03/22 17:13 FiO2 60 01/05/22 09:56 01/04/22 01/05/22 01/05/22 22:59 06:59 14:59 Intake Total 2045.816 / 2891.764 3601.047 / 6492.811 1426.646 / 1426.646 Output Total 0 / 0 215 / 215 Balance 2045.816 / 2891.764 3386.047 / 6277.811 1426.646 / 1426.646 Weight last 48 hrs Weight 88.3 kg Weight 84.822 kg Weight 79.379 kg Weight 79.379 kg Physical Exam Narrative: Intubated and sedated Skin mottling noted on left flank, Scrotal hemorrhage noted Pupils are pinpoint Currently on 3 vasopressors 60% FiO2 Febrile Clinically he does look fluid overloaded with edema of his extremities Lower extremities are warm to touch Feet are cold Abdomen is slightly bloated and distended Brown color content suctioned with the NG tube Urinary Catheter Management: Zepeda: Cath Placed During This Visit: yes Reason for Continuing Indwelling Catheter: Accurate Measurement of Urinary Output in Critically Ill Patients Urinary Catheter Date of Insertion: 01/03/22 Urinary Catheter Time of Insertion: 18:44 Data : 01/05/22 07:55 01/05/22 07:55 Micro: Microbiology 01/03/22 20:28 Blood Culture - Preliminary Blood NEGATIVE TO DATE 01/03/22 17:52 Blood Culture - Preliminary Blood NEGATIVE TO DATE 01/04/22 04:55 MRSA Culture - Final Nose A&P Assessment and plan (1) Severe aortic stenosis: Status: Acute (2) ATN (acute tubular necrosis): Status: Acute (3) Hyperkalemia: Status: Acute (4) Septic shock: Status: Acute (5) Rhabdomyolysis: Status: Acute (6) MARK (acute kidney injury): Status: Acute (7) Hypoxia: Status: Acute (8) CAP (community acquired pneumonia): Status: Acute (9) D-dimer, elevated: Status: Acute (10) Afib: Status: Acute (11) NSTEMI (non-ST elevated myocardial infarction): Status: Acute (12) Sepsis: Status: Acute Plan Respiratory failure required mechanical ventilation Chlorhexidine Protonix Currently sedated On 3 vasopressors FiO2 60% Septic shock Currently patient is on 3 vasopressors Levophed has been titrated down to 7 mics I have asked nurses to titrate down epi IV steroids have been added 3 g of calcium gluconate given yesterday Skin mottling and petechiae noted over scrotal area Hemoglobin is stable Severe aortic stenosis A. fib Amiodarone can be stopped Heart rate is in 90s Most likely severe aortic stenosis and A. fib precipitated pulmonary edema ATN Anuric Appreciate nephro recommendations Continue dialysis Metabolic acidosis: Bicarb drip to be titrated as per nephro recommendations Rhabdomyolysis CPK is still around 8000 NSTEMI Heparin drip held today for petechiae of the scrotal area Septic shock 3 vasopressors Febrile Currently on IV antibiotics MRSA negative discontinue vancomycin Send sputum culture Heparin drip was initiated for suspicion of PE DNR/DNI Guarded prognosis Family might opt for comfort care Attestations Medical Necessity Statement*: Continue ICU management Critical Care Time: 30 Coding Level of Care Code Acute Corrective 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
--- NOTE | 2022-01-05 10:18 | PM.PN ---
Subjective Subjective: Patient's overall her condition has worsened. Vitals/I&O/Wt Last Vital Signs Temp 101.2 F H 01/05/22 09:56 Pulse 90 01/05/22 09:56 Resp 18 01/05/22 09:56 BP 99/68 01/05/22 09:56 Pulse Ox 100 01/05/22 09:56 O2 Del Method 01/05/22 09:56 O2 Flow Rate 15 01/03/22 17:13 FiO2 60 01/05/22 09:56 01/04/22 01/05/22 01/05/22 22:59 06:59 14:59 Intake Total 2045.816 / 2891.764 3601.047 / 6492.811 1426.646 / 1426.646 Output Total 0 / 0 215 / 215 Balance 2045.816 / 2891.764 3386.047 / 6277.811 1426.646 / 1426.646 Weight last 48 hrs Weight 194 lb 10.691 oz Weight 187 lb Weight 175 lb Weight 175 lb Physical Exam Narrative: GENERAL: Patient is intubated and sedated HEART: Regular, grade 3/6 systolic murmur LUNGS: Diminished breath sounds bilaterally CENTRAL NERVOUS SYSTEM: Grossly nonfocal. [] EXTREMITIES: Lower extremities with 1+ edema bilaterally. Pulses palpable in the lower extremities, both dorsalis pedis and posterior tibial. [] Urinary Catheter Management: Zepeda: Cath Placed During This Visit: yes Reason for Continuing Indwelling Catheter: Accurate Measurement of Urinary Output in Critically Ill Patients Urinary Catheter Date of Insertion: 01/03/22 Urinary Catheter Time of Insertion: 18:44 Data : 01/05/22 07:55 01/05/22 07:55 Micro: Microbiology 01/03/22 20:28 Blood Culture - Preliminary Blood NEGATIVE TO DATE 01/03/22 17:52 Blood Culture - Preliminary Blood NEGATIVE TO DATE 01/04/22 04:55 MRSA Culture - Final Nose A&P Assessment and plan (1) NSTEMI (non-ST elevated myocardial infarction): Status: Acute (2) Sepsis: Status: Acute (3) Afib: Status: Acute (4) D-dimer, elevated: Status: Acute (5) CAP (community acquired pneumonia): Status: Acute (6) MARK (acute kidney injury): Status: Acute (7) Severe aortic stenosis: Status: Acute Plan Significant troponin elevation. LV systolic function is at least moderately reduced with the severe low-flow low gradient aortic stenosis. Likely demand ischemia in the setting of septic shock, severe aortic stenosis and possible underlying severe CAD. Patient's family has decided to proceed with comfort care measures Thank you for involving us with care of this patient. Please call with questions. Attestations Medical Necessity Statement*: Care expected to cross 2 midnights Coding Level of Care Code Acute Hospital Technician for [facility] Diagnoses NSTEMI (non-ST elevated myocardial infarction) I21.4 Sepsis A41.9 Afib I48.91 D-dimer, elevated R79.89 CAP (community acquired pneumonia) J18.9 MARK (acute kidney injury) N17.9 Severe aortic stenosis I35.0
--- NOTE | 2022-01-05 10:27 | XR_ITS ---
WS: [id number] Portable AP supine chest, 01/05/2022 Clinical Data: fever Comparison: Portable chest, 01/04/2022 Findings: The endotracheal tube, nasogastric tube and right internal jugular venous catheter remain i n same position. The patient is rotated to the left. There is opacity of the right lung which may rep resent pneumonia or unusual pulmonary edema. The left lung is clear. The heart is enlarged. Multiple leads and wires are overlying the chest. XR/XR chest 1V portable [id number] Impression: 1. No change in right lung opacity. 2. No change in position of multiple tubes. 3. Cardiomegaly.
--- NOTE | 2022-01-05 10:27 | XR_ITS ---
WS: [id number] KUB, portable AP supine, 01/05/2022 Clinical Data: fever Comparison: None. Findings: No abnormal intraabdominal masses or calcifications are seen. The small bowel shows dilatation in the central abdomen. There is minimal colon gas seen in the sigmoid region. There is a nasogastric tube curled in the stomach. There are multiple leads and wires overlying the abdomen. There is degenerative change of the lumbar spine. XR/XR KUB portable [id number] Impression: 1. Dilatation of small bowel loops in central abdomen which may represent a sev ere ileus or early small bowel obstruction. 2. Multiple wires and leads overlie the abdomen.
[2022-01-05] MEDS: heparin, porcine 1,000 unit/mL INJ 10 mL 1000 UNIT IV (10:43)
--- NOTE | 2022-01-05 11:20 | PC.NURSE ---
Rx informed this nurse that a vaso drip was not scanned on 01/04/22 at 1233, MAR will not let this nurse back time, Rx aware
[2022-01-05 11:40] LABS: Glucose Point of Care 174 mg/dL (70-110)
[2022-01-05 12:54] LABS: Alveolar-Arterial Oxygen Gradi 73.9 mmHg (5-10); Blood Gas Allen Test Pos; Blood Gas Operator Identificat JB; Blood Gas Sample Site Brachial, right; Blood Gas Sample Type Arterial; Blood Gas Tidal Volume 0.45
[2022-01-05 12:55] LABS: ABG PCO2 33.9 mmHg (35-45); Arterial Blood Gas Hematocrit 28.8 % (42-52); Base Excess ABG -21.5 mmol/L (-2.0-2.0); Blood Gas Allen Test Pos; Blood Gas Operator Identificat BD; Blood Gas Sample Site Brachial, right; Blood Gas Sample Type Arterial; Carboxyhemoglobin 0.7 %THgb (0.4-20.1); HCO3 ABG 8.4 mmol/L (22-26); HGB O2 Sat 91.4 % (95-100); Ionized Calcium Level - ABG 0.9 mmol/L (1.1-1.4); Methemoglobin 1.8 % (0.4-1.5); Oxygen Device VENT; Oxygen Saturation ABG 93.8; Potassium Level - ABG 5.1 mmol/L (3.5-5.0); Total Hemoglobin 9.4 g/dL (14-18)
[2022-01-05 13:43] LABS: Anti-Double Strand DNA AB <1 IU/mL
[2022-01-05] MEDS: EPINEPHrine 2.5 MG in sodium chloride 0.9% 250 ML 50 MG IV (14:04)
--- NOTE | 2022-01-05 15:01 | PC.NURSE ---
placed on comfort care at this time per family gtts off
--- NOTE | 2022-01-05 15:05 | P.DES_ITS ---
Discharge Providers DDS Date of Admission: 01/03/22 21:08 Date Summary Completed: 01/06/22 Attending Provider at Admission: Herbert Monique MD Time of : 15:55 Attending Provider at Discharge: Herbert Monique MD Primary Care Provider: Maksim BARKER Diagnoses Hospital Diagnoses (1) Severe aortic stenosis: (2) ATN (acute tubular necrosis): (3) Hyperkalemia: (4) Septic shock: (5) Rhabdomyolysis: (6) MARK (acute kidney injury): (7) Hypoxia: (8) CAP (community acquired pneumonia): (9) D-dimer, elevated: (10) Afib: (11) NSTEMI (non-ST elevated myocardial infarction): (12) Sepsis: Reason for Visit Reason for Visit afib / rvr Summary Date and Time of Date of : 01/05/22 Time of : 15:55 Summary Summary: 76-year-old male who was transferred to our facility from another ER for STEMI alert in our ER he was diagnosed with non-STEMI and septic shock, his creatinine was 3 at the time of admission he was started on heparin drip along IV fluids and antibiotics, he was intubated overnight because he was breathing in 40s on BiPAP, he developed ATN, septic shock requiring 3 vasopressors, he was anuric, hemodialysis was started no significant provement in acidosis despite aggressive hemodialysis. He also developed rhabdomyolysis. EF was slightly reduced. At the time of admission he was diagnosed with A. fib RVR. Echo showed severe aortic stenosis. Most likely A. fib RVR and severe aortic stenosis put him into pulm edema and then he developed septic shock with ATN. Family decided to pursue comfort care on 01/05. Additional Data Confirmation of as documented by pronouncing clinician: no pulse, no respirations, no heart sounds and pupils fixed and dilated Family: at bedside Additional persons at bedside: nursing staff Attending/PCP notified?: I am attending Was code activated?: No Autopsy requested?: No Advance directives?: Yes Hospice patient?: No Discharge Plan Discharge Patient Disposition: Condition: Stable Probable Cause of Probable cause of : Cardiac arrest DS Attestations Time Spent in /Discharge Care*: less than 30 min Quality - AMI: AMI present?: No Quality - Stroke: CVA present?: No Quality - VTE: VTE present?: No Coding Level of Care Code Acute 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
[2022-01-05 15:13] LABS: Anti-Nuclear Antibody Screen NEGATIVE (NEGATIVE)
--- NOTE | 2022-01-05 16:23 | PC.NURSE ---
SHIFT SUMMARY: PT WAS FAIRLY STABLE THROUGHOUT MOST OF THE MORNING. DURING DIALYSIS PTS O2 BEGAN TO DROP. DIALYSIS WAS STOPPED PER DIALYSIS NURSE. DR DAY NOTIFIED OF NEW CHANGES. FAMILY WAS ALSO CALLED AND NOTIFIED. FAMILY MADE DECISION TO SWITCH PT TO COMFORT CARE ONLY. DR DAY NOTIFIED OF FAMILY'S WISHES. PT SWITCHED TO COMFORT CARE. ALL MEDICATIONS STOPPED PER ORDERS AND FAMILY REQUEST. PT 1555. DR DAY NOTIFIED. FAMILY AT BEDSIDE WITH PT. HOUSE SUP NOTIFIED. MTS AND HOME ARE BEING ATTEMPTED TO BE REACHED BY THIS NURSE.
--- NOTE | 2022-01-05 19:34 | PC.NURSE ---
MTS and Saving site released the body to be transported to home. home was notified and stated they are unable to transfer patient at this time. [place] [facility] [place] supervisor notified.
--- NOTE | 2022-01-05 20:42 | PC.NURSE ---
[facility] home picked patient up at 2039.
[2022-01-06 11:00] LABS: ABG PH Result 7.01 (7.35-7.45)
[2022-01-06 14:48] LABS: Glomerular Bsmt Membrane IGG <1.0 AI
[2022-01-09 16:57] LABS: ANCA Screen NEGATIVE (NEGATIVE)
== END 2022-01-05 20:40 | disposition expired | DRG 871 ==
LOC: ER 17:56 → ICU 20:07
PROVIDERS: Family Medicine; Internal Medicine; Internal Medicine Nephrology; Admitting Provider Internal Medicine; Emergency Provider Family Medicine; PCP Physician Assistant Medical; Visit Provider Internal Medicine
DX: A41.9 Sepsis, unspecified organism (principal); I21.A1 Myocardial infarction type 2; J18.9 Pneumonia, unspecified organism; R65.21 Severe sepsis with septic shock; N17.0 Acute kidney failure with tubular necrosis; K72.00 Acute and subacute hepatic failure without coma; J96.00 Acute respiratory failure, unspecified whether with hypoxia or hypercapnia; M62.82 Rhabdomyolysis; E87.2 Acidosis; E87.1 Hypo-osmolality and hyponatremia; I10 Essential (primary) hypertension; I48.91 Unspecified atrial fibrillation; E78.5 Hyperlipidemia, unspecified; I25.10 Atherosclerotic heart disease of native coronary artery without angina pectoris; Z87.891 Personal history of nicotine dependence; I95.9 Hypotension, unspecified; E87.6 Hypokalemia; I46.9 Cardiac arrest, cause unspecified; Z51.5 Encounter for palliative care; I35.0 Nonrheumatic aortic (valve) stenosis; R57.0 Cardiogenic shock
CPT/HCPCS: 36415; 36416; 36600; 51702; 71045; 74018; 76770; 80048; 80051; 80053; 80069; 81001; 82009; 82306; 82310; 82330; 82533; 82550; 82553; 82728; 82803; 82805; 82962; 83036; 83520; 83540; 83550; 83605; 83735; 83880; 83970; 84100; 84145; 84439; 84443; 84484; 84550; 85025; 85610; 85730; 86036; 86038; 86140; 86160; 86225; 86704; 86706; 86803; 87040; 87070; 87086; 87205; 87340; 87635; 87641; 93005; 93306; 93970; 94002; 94003; 94660; 94799; 96365; 96366; 96367; 96372; 99291; C1752; J0171; J0282; J0330; J0610; J0692; J0743; J1644; J1650; J1720; J1815; J1940; J2704; J3010; J3370; J3480; J3490; J7030; J7050; J7060; P9047; Q3014